=== PATIENT | male | born 1975 | race Caucasian/White ===

== ENCOUNTER 2016-12-01 22:24 | Observation (INO) | payer SELFPAY ==
[2016-12-01] MEDS ORDERED: KETOROLAC 60 MG/2 ML VIAL IVP STA (22:46)
[2016-12-01] MEDS ORDERED: KETOROLAC 30 MG/ML VIAL ONE (22:51)
[2016-12-01] MEDS ORDERED: IOPAMIDOL-300 100 ML VIAL IVP ONE (23:45)
[2016-12-02] MEDS ORDERED: SODIUM CHLORIDE FLUSH 0.9% 10 ML SYRINGE IVP PRN (00:27)
[2016-12-02] MEDS ORDERED: LORazepam 0.5 MG TABLET PO PRN (00:37)
[2016-12-02] MEDS ORDERED: SODIUM CHLORIDE 0.9% 1,000 ML IV ONE (00:39)
[2016-12-02] MEDS ORDERED: MORPHINE 2 MG/ML SYRINGE IVP STA (00:39)
[2016-12-02] MEDS ORDERED: MORPHINE 2 MG/ML SYRINGE ONE ×2 (00:45)
[2016-12-02] MEDS ORDERED: LACTATED RINGERS 1,000 ML IV SCH (01:00)
[2016-12-02] MEDS ORDERED: SODIUM CHLORIDE FLUSH 0.9% 10 ML SYRINGE IVP SCH (06:00)
[2016-12-02] MEDS ORDERED: ENOXAPARIN 40 MG/0.4 ML SYRINGE SUBQ SCH (09:00)
== END 2016-12-02 06:21 | disposition left against medical advice (07) ==
DX: J93.9 Pneumothorax, unspecified (principal); Z72.0 Tobacco use
CPT/HCPCS: 36415; 71010; 71275; 80053; 80320; 83690; 84484; 85025; 93005; 93010; 96374; 96375; 99284; 99285; A9270; G0378; J7120; Q9967

== ENCOUNTER 2017-09-24 16:33 | Outpatient (CLI) | payer OTHER | END 2017-09-24 16:34 | disposition home or self-care (01) | LOC: DI 16:33 | PROVIDERS: ATTEND Physician Assistant | DX: Z53.9 Procedure and treatment not carried out, unspecified reason (principal) ==

== ENCOUNTER 2017-09-26 09:47 | Outpatient (CLI) | payer OTHER ==
--- NOTE | 2017-09-26 17:01 | MRI Report ---
EXAM: MRI LUMBAR SPINE WITHOUT CONTRAST EXAM DATE: 09/26/2017 10:38 AM. CLINICAL HISTORY: Right-sided low back pain with radiculopathy. Bilateral hip and anterior thigh pain . Bilateral leg weakness. COMPARISON: None. TECHNIQUE: Multiplanar, multisequence T1-weighted and fluid-sensitive sequences of the lumbar spine f rom T12 to S1 without contrast. Other: None. FINDINGS: Spinal Cord: The conus terminates at L1-L2. The conus medullaris and cauda equina are unremarkable. Alignment: Minimal dextroconvex scoliosis of the upper lumbar spine and minimal levoconvex scoliosis of the lower lumbar spine. Bone Marrow: Five nwy-hkh-tgiwsht lumbar vertebral bodies are assumed. Mild compression fracture invo lving the L3 superior endplate. Marrow edema within the superior half of the L3 vertebral body. Chron ic appearing mild to moderate compression fracture of the L1 vertebral body. Mild chronic T12 vertebr al body compression fracture. No bone lesions. Disk Levels/Facets: L5-S1: Small posterior central disk protrusion and minimal diffuse disk bulge. No stenoses. L4-L5: Mild facet arthropathy. No stenoses. L3-L4: Unremarkable. L2-L3: Unremarkable. L1-L2: Unremarkable. T12-L1: Unremarkable. T11-T12: Minimal disk bulge. Mild canal stenosis. Musculature: Normal. No edema or fatty atrophy. Other: The partially visualized retroperitoneum is unremarkable. IMPRESSION: 1. Acute or subacute appearing mild compression fracture involving the L3 vertebral body superior end plate. Chronic compression fractures of L1 and T12 vertebral bodies. Clinical correlation with regard s to risk factors for osteoporosis. 2. Small posterior central disk protrusion and minimal diffuse disk bulge at L5-S1. No stenoses. 3. Minimal disk bulge and mild canal stenosis at T11-T12. Comment: The following findings are so common in adults without low back pain that while we report th eir presence, they must be interpreted with caution and in the context of the clinical situation. (Re izzy Spencer et al, Spine 2001) Prevalence of findings in patients without low back pain: Disk degeneration (any evidence): 92% Disk desiccation/T2 signal loss: 83% Disk height loss: 56% Disk bulge: 64% Disk protrusion: 32% Annular tear/high intensity zone: 38% [facility] Referring Provider Line: [phone] SITE ID: [id number]
== END 2017-09-26 09:48 | disposition home or self-care (01) ==
LOC: DI 09:47
PROVIDERS: ATTEND Physician Assistant
DX: S32.039A Unspecified fracture of third lumbar vertebra, initial encounter for closed fracture (principal); M51.27 Other intervertebral disc displacement, lumbosacral region; M47.896 Other spondylosis, lumbar region; M51.84 Other intervertebral disc disorders, thoracic region
CPT/HCPCS: 72148

== ENCOUNTER 2017-10-07 14:14 | Outpatient (CLI) | payer BC, OTHER ==
--- NOTE | 2017-10-09 13:34 | DEXA Report ---
DEXA: 10/07/2017 CLINICAL INDICATION: Low trauma vertebral body compression fracture. TECHNIQUE: Dual energy x-ray absorptiometry (DXA) was performed on a [employer] system. Regions measured are the AP spine, femoral neck, and, if needed, forearm. COMPARISON: None. In accordance with the International Society for Clinical Densitometry (ISCD) guidelines, data from previous exams may be reanalyzed using current recommendations and techniques. This is done to allow a more accurate basis for comparison with the current study. FINDINGS The data for the lumbar spine is as follows: REGION BMD (g/cm/cm) T-SCORE Z-SCORE L1 1.007 -1.3 -0.9 L2 1.004 -2.0 -1.6 L1-L2 TOTAL 1.005 -1.6 -1.3 NOTE: All evaluable vertebrae are used for classification. The data for the left hip is as follows: REGION BMD (g/cm/cm) T-SCORE Z-SCORE Neck 0.869 -1.5 -0.9 TOTAL 0.886 -1.5 -1.1 NOTE: The femoral neck or total proximal femur, whichever is lowest, is used for classification. IMPRESSION 1. THE WHO CLASSIFICATION BASED ON THE INTERNATIONAL REFERENCE STANDARD IS OSTEOPENIA. THE FRACTURE RISK IS INCREASED. 2. L3 AND L4 EXCLUDED, DUE TO RECENT L3 VERTEBRAL BODY FRACTURE HISTORY. RECOMMENDATION: Patients with diagnosis of osteoporosis or osteopenia should have regular bone mineral density assessment. For those eligible for Medicare, routine testing is allowed once every 2 years. Testing frequency can be increased for patients who have rapidly progressing disease or for those who are receiving medical therapy to restore bone mass. COMMENT: World Health Organization (WHO) definitions for osteoporosis and osteopenia: NORMAL BMD: T-score at 1.0 or higher, fracture risk is low. OSTEOPENIA BMD: T-score between 1.0 and -2.5, fracture risk is increased. OSTEOPOROSIS BMD: T-score at 2.5 or lower, fracture risk high. National Osteoporosis Foundation recommends: 1. Obtain adequate dietary calcium (at least 1200 mg per day) and vitamin D (400 -800 international units per day). 2. Participate, as appropriate, in regular weightbearing and muscle- strengthening exercise. 3. Avoid tobacco use and reduce alcohol and caffeine intake. 4. For more detailed information see the website at www.NOF.org. TD: 10/08/2017 18:04 LINA
== END 2017-10-07 14:15 | disposition home or self-care (01) ==
LOC: DI 14:14
PROVIDERS: ATTEND Physician Assistant
DX: M85.89 Other specified disorders of bone density and structure, multiple sites (principal)
CPT/HCPCS: 77080

== ENCOUNTER 2018-08-08 17:12 | Emergency (ER) | payer BC ==
[2018-08-08] MEDS ORDERED: oxyCODONE 5 MG TABLET PO STA (17:30)
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
--- NOTE | 2018-08-08 18:08 | CT Report ---
Reason: head inj Procedure Date: 08/08/2018 Accession Number: [id number] / [id number] Procedure: CT - Head W/O CPT Code: FULL RESULT: EXAM: CT HEAD EXAM DATE: 08/08/2018 05:53 PM. CLINICAL HISTORY: Head injury. Neck sprain. COMPARISON: Head without contrast 08/08/2018 5:33 PM. TECHNIQUE: Multiaxial CT images were obtained from the foramen magnum to the vertex. Reformats: Sagittal and coronal. IV contrast: None. In accordance with CT protocol optimization, one or more of the following dose reduction techniques were utilized for this exam: automated exposure control, adjustment of mA and/or KV based on patient size, or use of iterative reconstructive technique. FINDINGS: Parenchyma: No intraparenchymal hemorrhage. No evidence of mass, midline shift, or CT findings of infarction. Richardson-white differentiation is distinct. Extraaxial Spaces: Normal for age. No subdural or epidural collections identified. Ventricles: Normal in size and position. Sinuses and Orbits: Almost complete opacification of the normal caliber left maxillary sinus. Opacification anterior two-thirds left ethmoid air cells. Lesser degree of mucosal thickening in the left frontal air cells. Rest of the paranasal sinuses, middle ears and mastoid air cells are clear. Bones: No evidence of fracture or calvarial defect. Other: None. No upper facial edema. IMPRESSION: 1. Moderate to marked left ostiomeatal unit complex sinus disease. Note that the full differential of the left maxillary sinus opacification would also include blood products. Correlate clinically. 2. No intracranial abnormality nor bleed. [facility]
--- NOTE | 2018-08-08 18:25 | CT Report ---
Reason: neck sprain Procedure Date: 08/08/2018 Accession Number: [id number] / [id number] Procedure: CT - Cervical Spine W/O CPT Code: FULL RESULT: EXAM: CT CERVICAL SPINE WITHOUT CONTRAST DATE: 08/08/2018 05:53 PM. HISTORY: Head injury. Neck pain. COMPARISONS: None. TECHNIQUE: Thin-section axial images were acquired of the cervical spine without contrast. Post-processing: Coronal and sagittal reformats. Other: None. In accordance with CT protocol optimization, one or more of the following dose reduction techniques were utilized for this exam: automated exposure control, adjustment of mA and/or KV based on patient size, or use of iterative reconstructive technique. FINDINGS: Alignment: No scoliosis or spondylolisthesis. Bones: No fracture or bone lesion. Interspace Levels/Facets: C1-C2: Unremarkable. C2-C3: Unremarkable. C3-C4: Mild narrowing. Old small left-sided disk herniation. Mild left C3-C4 bony neural foraminal compromise. C4-C5: Moderate to marked narrowing. Old moderate left-sided disk herniation. Mild central spinal canal stenosis. Moderate left C4-C5 bony neural foraminal compromise. C5-C6: Mild narrowing. Old small left-sided disk herniation. Mild central spinal canal stenosis. Moderate to marked left C5-C6 bony neural foraminal compromise. C6-C7: Mild narrowing. Old small left-sided disk herniation. Marked left C6-C7 bony neural foraminal compromise. C7-T1: Unremarkable. Musculature: Normal. No fatty atrophy. Other: The paravertebral and prevertebral soft tissues are unremarkable. The lung apices are clear. IMPRESSION: No acute bony abnormality. [facility]
--- NOTE | 2018-08-08 18:28 | XRAY Report ---
Reason: back inj Procedure Date: 08/08/2018 Accession Number: [id number] / [id number] Procedure: XR - Lumbar Spine 2 View CPT Code: FULL RESULT: EXAM: LUMBOSACRAL SPINE RADIOGRAPHY EXAM DATE: 08/08/2018 05:59 PM. CLINICAL HISTORY: Back injury. Pain. COMPARISONS: Lumbar spine MRI without contrast 09/26/2017 10:00 AM. TECHNIQUE: 2 views. FINDINGS: Alignment: 10 degree dextroscoliosis centered at L1-L2. Bones: Five hxd-zst-ckpyhbj lumbar vertebral bodies are present. Stable old mild wedging T12. Stable old moderate wedging L1. Interval maturation mildly wedged L3 vertebral body involving the superior endplate. No acute trabecular or cortical disruption. Disks: Normal. Disk heights are maintained. Facets: No degenerative changes. Sacroiliac Joints: Unremarkable. Soft Tissues: Normal. The visualized bowel gas pattern is normal. IMPRESSION: No acute bony abnormality. [facility]
[2018-08-08] MEDS ORDERED: NAPROXEN 250 MG TABLET PO STA (18:45)
[2018-08-08 19:03] VITALS: BP 123/93
== END 2018-08-08 19:04 | disposition home or self-care (01) ==
LOC: ED 17:12
DX: S09.90XA Unspecified injury of head, initial encounter (principal); S39.92XA Unspecified injury of lower back, initial encounter; J01.01 Acute recurrent maxillary sinusitis; R03.0 Elevated blood-pressure reading, without diagnosis of hypertension; F17.200 Nicotine dependence, unspecified, uncomplicated; Y04.0XXA Assault by unarmed brawl or fight, initial encounter; W22.8XXA Striking against or struck by other objects, initial encounter; Y93.9 Activity, unspecified; Y92.008 Other place in unspecified non-institutional (private) residence as the place of occurrence of the external cause
CPT/HCPCS: 70450; 72100; 72125; 99283; 99284; A9270

== ENCOUNTER 2020-01-23 12:15 | Inpatient (IN) | payer BC, OTHER ==
[2020-01-23] MEDS ORDERED: SODIUM CHLORIDE 0.9% 1,000 ML IV STA ×2 (13:58→14:50)
[2020-01-23] MEDS ORDERED: HYDROmorphone 1 MG/ML CARPUJECT IVP STA ×2 (13:58→15:55)
[2020-01-23] MEDS ORDERED: ONDANSETRON 4 MG/2 ML VIAL IVP STA (13:58)
--- NOTE | 2020-01-23 14:00 | ED Physician Documentation ---
PD HPI ABD PAIN - Stated complaint Stated Complaint: ABD PX - Chief complaint Chief Complaint: Abd Pain - History obtained from History obtained from: Patient - History of Present Illness Timing - onset: Yesterday Timing - duration: Days (2) Timing - details: Gradual onset Pain level max: 10 Pain level now: 10 Quality: Aching, Pain Location: Periumbilical, RLQ, Suprapubic, LLQ Radiation: No: Chest, , Lower back, Left flank, Left shoulder, Right flank, Right shoulder, Upper back Improved by: Laying still Worsened by: Moving Associated symptoms: Nausea, Diarrhea. No: Fever, Vomiting, Hematemesis, Constipation, Melena, Hematochezia, Dysuria, Hematuria, Chest pain, Dizzy, Near syncope / syncope Similar symptoms before: Has not had sx before Recently seen: Not recently seen - Additional information Additional information: 44-year-old male complains of lower abdominal pain since yesterday. States unable to stand up straight now. Decreased appetite. No fevers. History of a splenectomy in the past. No other intra-abdominal surgeries. Has nausea but no vomiting. No blood in the urine. No dysuria. Took Flexeril without relief. Review of Systems Ten Systems: 10 systems reviewed and negative Constitutional: denies: Fever, Chills Cardiac: denies: Chest pain / pressure Respiratory: denies: Cough GI: denies: Vomiting, Diarrhea : denies: Dysuria, Frequency, Hesitancy Skin: denies: Rash Neurologic: denies: Headache PD PAST MEDICAL HISTORY - Past Medical History Cardiovascular: None Respiratory: Other Endocrine/Autoimmune: None GI: None : None HEENT: Other Psych: None Musculoskeletal: None Derm: None - Past Surgical History Past Surgical History: Yes General: Splenectomy, Other Ortho: Other - Present Medications Home Medications: Ambulatory Orders Medication Instructions Recorded Confirmed No Known Home Medications 01/23/20 01/23/20 - Allergies Allergies/Adverse Reactions: Allergies Allergy/AdvReac Type Severity Reaction Status Date / Time No Known Drug Allergies Allergy Verified 01/23/20 12:35 - Social History Does the pt smoke?: Yes Smoking Status: Current every day smoker Does the pt drink ETOH?: Yes Does the pt have substance abuse?: No - Immunizations Immunizations are current?: No - POLST Patient has POLST: No PD ED PE NORMAL - Vitals Vital signs reviewed: Yes - General General: Alert and oriented X 3, Well developed/nourished, Other (Appears in pain) - HEENT HEENT: Moist mucous membranes - Neck Neck: Supple, no meningeal sign - Cardiac Cardiac: RRR, Strong equal pulses - Respiratory Respiratory: No respiratory distress, Clear bilaterally - Abdomen Abdomen: Soft, Other (Diffusely tender palpation across the lower abdomen. Positive guarding and rebound) - Back Back: No CVA TTP, No spinal TTP - Derm Derm: Warm and dry, No rash - Extremities Extremities: No edema, No calf tenderness / cord - Neuro Neuro: Alert and oriented X 3 - Psych Psych: Normal mood, Normal affect Results - Vitals Vitals: Vital Signs - 24 hr 01/23/20 01/23/20 01/23/20 12:31 14:07 15:56 Temperature 36.8 C 37.1 C Heart Rate 124 H 101 H 89 Respiratory 22 16 18 Rate Blood Pressure 112/85 H 135/96 H 123/81 H O2 Saturation 98 100 95 Oxygen O2 Source Room air - Labs Labs: Laboratory Tests 01/23/20 01/23/20 14:00 14:00 WBC 21.3 H RBC 5.52 Hgb 18.9 H Hct 53.7 H MCV 97.3 H MCH 34.2 H MCHC 35.2 RDW 12.3 Plt Count 287 MPV 10.1 Neut # (Auto) Not Reportable Lymph # (Auto) Not Reportable Brooke # (Auto) Not Reportable Eos # (Auto) Not Reportable Baso # (Auto) Not Reportable Absolute Nucleated RBC Not Reportable Total Counted 100 Band Neuts % (Manual) 0 Abnorm Lymph % (Manual) 0 Nucleated RBC % Not Reportable Neutrophils # (Manual) 19.8 H Lymphocytes # (Manual) 1.5 Monocytes # (Manual) 0.0 Eosinophils # (Manual) 0.0 Basophils # (Manual) 0.0 Differential Comment MANUAL DIFFERENTIAL Manual Slide Review Indicated WBC Morphology NORMAL APPEARANCE Platelet Estimate NORMAL (130-450,000) Platelet Morphology NORMAL APPEARANCE RBC Morph Micro Appear NORMAL APPEARANCE Sodium 136 Potassium 3.1 L Chloride 99 L Carbon Dioxide 22 Anion Gap 15.0 H BUN 17 Creatinine 1.1 Estimated GFR (MDRD) 72 L Glucose 120 H Calcium 9.0 Total Bilirubin 2.8 H AST 23 ALT 34 Alkaline Phosphatase 76 Total Protein 8.3 H Albumin 4.2 Globulin 4.1 Albumin/Globulin Ratio 1.0 Lipase 24 - Rads (name of study) CT abdomen pelvis Radiology: Prelim report reviewed, EMP read contemporaneously, See rad report (Sigmoid diverticulitis with perforation) PD MEDICAL DECISION MAKING - ED course Complexity details: reviewed results, re-evaluated patient, considered differential, d/w patient, d/w edi consultant ED course: 44-year-old male with perforated sigmoid diverticulitis. Given IV antibiotics. Given pain medication. Continues to have significant pain. Discussed the case with Dr. Ahumada, surgery on-call who will come and evaluate the patient. Also discussed the case with Dr. Clemente, hospitalist who accepts. This document was made in part using voice recognition software. While efforts are made to proofread this document, sound alike and grammatical errors may occur. Departure - Departure Disposition: 66 [facility] DC/[facility] Clinical Impression: Perforation of intestine due to diverticulitis of gastrointestinal tract Condition: Stable Discharge Date/Time: 01/23/20 18:20
[2020-01-23 14:09] LABS: BASOPHILS % (AUTO) 0.5 %; EOSINOPHILS % (AUTO) 0.3 %; HGB - HEMOGLOBIN 18.9 g/dL (14.0-18.0); LYMPHOCYTES % (AUTO) 11.6 %; MEAN CORPUSCULAR HEMOGLOBIN 34.2 pg (27.0-31.0); MEAN CORPUSCULAR HGB CONC 35.2 g/dL (32.0-36.0); MEAN CORPUSCULAR VOLUME 97.3 fL (80.0-94.0); MEAN PLATELET VOLUME 10.1 fL (7.4-11.4); MONOCYTES % (AUTO) 5.4 %; NEUTROPHILS % (AUTO) 81.6 %; PLT - PLATELET COUNT 287 10^3/uL (130-450); RED BLOOD COUNT 5.52 10^6/uL (4.70-6.10); RED CELL DISTRIBUTION WIDTH 12.3 % (12.0-15.0); WHITE BLOOD COUNT 21.3 x10^3/uL (4.8-10.8)
[2020-01-23] MEDS ORDERED: KETOROLAC 30 MG/ML VIAL IVP STA (14:18)
[2020-01-23] MEDS ORDERED: IOVERSOL 320 100 ML VIAL IVP ONE ×2 (14:35→15:03)
[2020-01-23 14:36] LABS: ALBUMIN 4.2 g/dL (3.2-5.5); BILIRUBIN,TOTAL 2.8 mg/dL (0.2-1.0); CREATININE 1.1 mg/dL (0.6-1.2); TOTAL PROTEIN 8.3 g/dL (6.7-8.2)
[2020-01-23 14:39] LABS: ABNORMAL LYMPHS % (MANUAL) 0 %; BAND NEUTROPHILS % (MANUAL) 0 %
[2020-01-23 15:12] LABS: DIFFERENTIAL COMMENT MANUAL DIFFERENTIAL; LYMPHOCYTES # (MANUAL) 1.5 10^3/uL (1.5-3.5); LYMPHOCYTES % (MANUAL) 7 %; PLATELET ESTIMATE, MANUAL NORMAL (130-450,000) (NORMAL); PLATELET MORPHOLOGY NORMAL APPEARANCE (NORMAL); RBC MORPHOLOGY (MULTIPLE) NORMAL APPEARANCE (NORMAL)
[2020-01-23] MEDS ORDERED: PIPERACILLIN/TAZOBACTAM 4.5 GM in SODIUM CHLORIDE 0.9% MINIBAG 100 ML IV STA (15:29)
[2020-01-23] MEDS ORDERED: metroNIDAZOLE 500 MG/100 ML 500 MG/100 ML BAG IV ONE (15:29)
--- NOTE | 2020-01-23 15:35 | CT Report ---
Reason: RLQ and LLQ abd pain Procedure Date: 01/23/2020 Accession Number: [id number] / [id number] Procedure: CT - Abdomen/Pelvis W CPT Code: Addended Final Report FULL RESULT: EXAM: CT ABDOMEN AND PELVIS EXAM DATE: 01/23/2020 03:02 PM. CLINICAL HISTORY: RLQ and LLQ abd pain. COMPARISONS: None. TECHNIQUE: Routine helical CT imaging was performed through the abdomen and pelvis. IV contrast: 100 cc OPTIRAY 320. Enteric contrast: No. Reconstructions: Coronal and sagittal. In accordance with CT protocol optimization, one or more of the following dose reduction techniques were utilized for this exam: automated exposure control, adjustment of mA and/or KV based on patient size, or use of iterative reconstructive technique. FINDINGS: Lung Bases: Unremarkable. Liver: Normal. No masses. Gallbladder/Bile Ducts: Unremarkable. Spleen: Normal. Pancreas: Normal. Adrenal Glands: Normal. Kidneys: Normal. No masses or hydronephrosis. Peritoneal Cavity/Bowel: Diffuse colonic diverticulosis involving the sigmoid colon with multiple diverticula (image 70 on series 3). There is very colonic fat running. Findings suggestive of acute diverticulitis. No pericolonic fluid collection or abscess. No micro perforation. Normal. No free fluid, free air or adenopathy. No masses or acute inflammatory process. The appendix is well visualized and normal. Pelvic Organs: Normal. The bladder and visualized pelvic organs are within normal limits. Vasculature: No aneurysms or other significant abnormality. Bones: Mild age indeterminate superior endplate compression at L1 and L3 vertebral bodies. Other: None. IMPRESSION: Diffuse colonic diverticulosis involving the sigmoid colon with multiple diverticula and pericolonic fat stranding. Findings suggestive of acute diverticulitis.No pericolonic fluid collection or abscess. No micro perforation. Mild age indeterminate superior end plate compression at L1 and L3 vertebral bodies. [facility] ADDENDUM: 01/23/20 15:52 Suggestion of colonic microperforation.
[2020-01-23] MEDS ORDERED: ACETAMINOPHEN 325 MG TABLET PO PRN (16:36)
[2020-01-23] MEDS ORDERED: ONDANSETRON 4 MG/2 ML VIAL IVP PRN (16:36)
[2020-01-23 17:38] LABS: BILIRUBIN,URINE NEGATIVE (NEGATIVE); GLUCOSE, URINE (UA) NEGATIVE (NEGATIVE); KETONES,URINE (UA) 15 mg/dL (NEGATIVE); LEUKOCYTE ESTERASE, URINE NEGATIVE (NEGATIVE); NITRITE,URINE NEGATIVE (NEGATIVE); OCCULT BLOOD,URINE LARGE (NEGATIVE); PROTEIN,URINE NEGATIVE (NEGATIVE); UROBILINOGEN,URINE 0.2 (NORMAL) E.U./dL (NORMAL)
[2020-01-23 17:41] LABS: CLARITY,URINE HAZY (CLEAR)
[2020-01-23 17:49] LABS: BACTERIA,URINE None Seen /HPF (None Seen); RBC,URINE 0-5 /HPF (0-5); SQUAMOUS EPITHELIAL CELL,UR NONE SEEN (<= Few)
[2020-01-23] MEDS: SODIUM CHLORIDE FLUSH 0.9% 10 ML SYRINGE IVP SCH (18:25)
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
[2020-01-23] MEDS: LACTATED RINGERS 1,000 ML IV SCH (18:41)
[2020-01-23] MEDS: MORPHINE 2 MG/ML CARPUJECT IVP PRN ×2 (18:42→20:43)
[2020-01-23] MEDS: POTASSIUM CHLOR 10 MEQ/100 ML 10 MEQ/100 ML BAG IV SCH ×3 (18:45→22:16)
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
[2020-01-23] MEDS: KETOROLAC 30 MG/ML VIAL IVP PRN (19:18)
[2020-01-23] MEDS: NICOTINE 14 MG PATCH TOP SCH (19:34)
[2020-01-23] MEDS: NICOTINE GUM 4 MG PO SCH (19:47)
[2020-01-23] MEDS: HYDROmorphone 1 MG/ML CARPUJECT IVP PRN (21:40)
[2020-01-24] MEDS: HYDROmorphone 1 MG/ML CARPUJECT IVP PRN ×12 (00:08→22:48)
[2020-01-24] MEDS: SODIUM CHLORIDE FLUSH 0.9% 10 ML SYRINGE IVP SCH ×3 (00:08→16:28)
[2020-01-24] MEDS: NICOTINE GUM 4 MG PO SCH ×11 (00:21→22:58)
[2020-01-24] MEDS: PIPERACILLIN/TAZOBACTAM 3.375 GM in SODIUM CHLORIDE 0.9% MINIBAG 100 ML IV SCH ×4 (00:29→18:37)
[2020-01-24] MEDS: KETOROLAC 30 MG/ML VIAL IVP PRN ×4 (01:11→20:25)
[2020-01-24] MEDS: POTASSIUM CHLOR 10 MEQ/100 ML 10 MEQ/100 ML BAG IV SCH (01:12)
[2020-01-24] MEDS: LACTATED RINGERS 1,000 ML IV SCH ×3 (03:45→20:27)
[2020-01-24 06:18] LABS: BASOPHILS # (AUTO) 0.1 10^3/uL (0.0-0.1); BASOPHILS % (AUTO) 0.4 %; EOSINOPHILS # (AUTO) 0.1 10^3/uL (0.0-0.7); EOSINOPHILS % (AUTO) 0.7 %; HGB - HEMOGLOBIN 14.8 g/dL (14.0-18.0); LYMPHOCYTES # (AUTO) 2.1 10^3/uL (1.5-3.5); LYMPHOCYTES % (AUTO) 9.8 %; MEAN CORPUSCULAR HGB CONC 33.7 g/dL (32.0-36.0); MEAN CORPUSCULAR VOLUME 97.8 fL (80.0-94.0); MEAN PLATELET VOLUME 10.3 fL (7.4-11.4); MONOCYTES # (AUTO) 1.2 10^3/uL (0.0-1.0); MONOCYTES % (AUTO) 5.8 %; NEUTROPHILS # (AUTO) 17.2 10^3/uL (1.5-6.6); NEUTROPHILS % (AUTO) 82.7 %; PLT - PLATELET COUNT 229 10^3/uL (130-450); RED BLOOD COUNT 4.49 10^6/uL (4.70-6.10); RED CELL DISTRIBUTION WIDTH 12.4 % (12.0-15.0); WHITE BLOOD COUNT 20.9 x10^3/uL (4.8-10.8)
[2020-01-24 06:37] LABS: CREATININE 0.9 mg/dL (0.6-1.2); MAGNESIUM 1.9 mg/dL (1.7-2.8); PHOSPHORUS 2.7 mg/dL (2.5-4.6)
[2020-01-24] MEDS: ENOXAPARIN 40 MG/0.4 ML SYRINGE SUBQ SCH (07:55)
--- NOTE | 2020-01-24 08:10 | PHARMACY PROGRESS NOTE ---
- Best Possible Medication History Admit Date and Time: 01/23/20 1636 Processed by: Nursing Medication History completed: Yes Patient Interview: Pt interview ONLY source As the person ultimately responsible for medication therapy, providers are able to order a medication from an existing home medication list in [facility] via the "Reconcile Routine" prior to Confirmation of that medication by wan support specialist. Such practice is discouraged except when the physician, in their clinical judgment, deems that a medical need exists for a medication without regard to previous use.
[2020-01-24] MEDS: NICOTINE 14 MG PATCH TOP SCH (08:28)
--- NOTE | 2020-01-24 09:29 | PROVIDER PROGRESS NOTE ---
Subjective - Prog Note Date Prog Note Date: 01/24/20 - Subjective Subjective: Reports abdominal pain has slightly improved but remains quite significant. It is 10 out of 10 at its worst improved to 5 out of 10 with pain medication. Remains located in the left and right lower quadrants. Reports no nausea or vomiting. He has been able to tolerate some sips and ice chips. Current Medications - Current Medications Current Medications: Active Medications Acetaminophen (Tylenol) 650 mg PO Q4HR PRN PRN Reason: Pain 1 to 4 Enoxaparin Sodium (Lovenox) 40 mg SUBQ DAILY [facility] Last Admin: 01/24/20 07:55 Dose: Not Given Hydromorphone HCl (Dilaudid Inj Carp) 1 mg IVP Q2HR PRN PRN Reason: PAIN Last Admin: 01/24/20 08:28 Dose: 1 mg Lactated Ringer's (Lr) 1,000 mls @ 125 mls/hr IV .Q8H [facility] Last Admin: 01/24/20 03:45 Dose: 125 mls/hr Piperacillin Sod/Tazobactam (Sod 3.375 gm/ Sodium Chloride) 100 mls @ 200 mls/hr IV Q6HR [facility] Last Infusion: 01/24/20 07:01 Dose: Infused Ketorolac Tromethamine (Toradol Inj (30mg)) 30 mg IVP Q6HR PRN PRN Reason: PAIN Stop: 01/28/20 18:34 Last Admin: 01/24/20 07:35 Dose: 30 mg Nicotine (Nicoderm) 1 patch TOP DAILY [facility] Last Admin: 01/24/20 08:28 Dose: Not Given Nicotine Gum 4mg 1 each PO Q2H [facility] Last Admin: 01/24/20 09:07 Dose: 1 each Ondansetron HCl (Zofran Inj) 4 mg IVP Q6HR PRN PRN Reason: Nausea / Vomiting Sodium Chloride (Normal Saline Flush 0.9%) 10 ml IVP PRN PRN PRN Reason: NEEDED PER PROVIDER ORDERS Sodium Chloride (Normal Saline Flush 0.9%) 10 ml IVP 0100,0900,1700 [facility] Last Admin: 01/24/20 07:36 Dose: 10 ml No Known Home Medications 01/23/20 Objective - Vital Signs/Intake & Output Reviewed Vital Signs: Yes Vital Signs: Vital Signs x48h Temp Pulse Resp BP Pulse Ox 05/17/20 08:05 36.9 C 86 18 121/75 94 01/24/20 04:43 37 C 73 20 115/74 93 Intake & Output: Intake & Output 01/21/20 01/22/20 01/23/20 01/24/20 23:59 23:59 23:59 23:59 Intake Total 3146.667 1400 Balance 3146.667 1400 - Objective General Appearance: positive: No acute distress, Moderate distress Eyes Bilateral: positive: Normal inspection ENT: positive: ENT inspection nml Neck: positive: Nml inspection Respiratory: positive: No respiratory distress. negative: Wheezes, Rales, Rhonchi Cardiovascular: positive: Regular rate & rhythm, No murmur. negative: Tachycardia, Bradycardia, Systolic murmur Abdomen: positive: Nml bowel sounds, No distention, Tenderness (Prominent in the left and right lower quadrants.), Guarding. negative: Non-tender, Rebound Skin: positive: Warm, Dry Extremities: positive: Full ROM, No pedal edema Neurologic/Psychiatric: positive: Oriented x3, Motor nml. negative: Disoriented to person, Disoriented to place, Disoriented to time - Lab Results Fish Bones: 01/24/20 06:08 01/24/20 06:08 Other Labs: Lab Results x24hrs 01/24/20 01/24/20 01/24/20 Range/Units 06:10 06:08 06:08 WBC 20.9 H (4.8-10.8) x10^3/uL RBC 4.49 L (4.70-6.10) 10^6/uL Hgb 14.8 (14.0-18.0) g/dL Hct 43.9 (42.0-52.0) % MCV 97.8 H (80.0-94.0) fL MCH 33.0 H (27.0-31.0) pg MCHC 33.7 (32.0-36.0) g/dL RDW 12.4 (12.0-15.0) % Plt Count 229 (130-450) 10^3/uL MPV 10.3 (7.4-11.4) fL Neut # (Auto) 17.2 H Lymph # (Auto) 2.1 [place] # (Auto) 1.2 H Eos # (Auto) 0.1 Baso # (Auto) 0.1 Absolute Nucleated RBC 0.00 Total Counted Band Neuts % (Manual) (0 - 10) % Abnorm Lymph % (Manual) % Nucleated RBC % 0.0 Neutrophils # (Manual) (1.5-6.6) 10^3/uL Lymphocytes # (Manual) (1.5-3.5) 10^3/uL Monocytes # (Manual) (0.0-1.0) 10^3/uL Eosinophils # (Manual) (0-0.7) 10^3/uL Basophils # (Manual) (0-0.1) 10^3/uL Differential Comment Manual Slide Review WBC Morphology (NORMAL) Platelet Estimate (NORMAL) Platelet Morphology (NORMAL) RBC Morph Micro Appear (NORMAL) Sodium 134 L (135-145) mmol/L Potassium 3.6 (3.5-5.0) mmol/L Chloride 104 (101-111) mmol/L Carbon Dioxide 24 (21-32) mmol/L Anion Gap 6.0 (6-13) BUN 16 (6-20) mg/dL Creatinine 0.9 (0.6-1.2) mg/dL Estimated GFR (MDRD) 91 (>89) Glucose 89 (70-100) mg/dL POC Whole Bld Glucose 86 (70 - 100) mg/dL Calcium 8.0 L (8.5-10.3) mg/dL Phosphorus 2.7 (2.5-4.6) mg/dL Magnesium 1.9 (1.7-2.8) mg/dL Total Bilirubin (0.2-1.0) mg/dL AST (10-42) IU/L ALT (10-60) IU/L Alkaline Phosphatase (42-121) IU/L Total Protein (6.7-8.2) g/dL Albumin (3.2-5.5) g/dL Globulin (2.1-4.2) g/dL Albumin/Globulin Ratio (1.0-2.2) Lipase (22-51) U/L Urine Color Urine Clarity (CLEAR) Urine pH (5.0-7.5) PH Ur Specific [place] (1.002-1.030) Urine Protein (NEGATIVE) mg/dL Urine Glucose (UA) (NEGATIVE) mg/dL Urine Ketones (NEGATIVE) mg/dL Urine Occult Blood (NEGATIVE) Urine Nitrite (NEGATIVE) Urine Bilirubin (NEGATIVE) Urine Urobilinogen (NORMAL) E.U./dL Ur Leukocyte Esterase (NEGATIVE) Urine RBC (0-5) /HPF Urine WBC (0-3) /HPF Ur Squamous Epith Cells (<= Few) Urine Bacteria (None Seen) /HPF Ur Microscopic Review Urine Culture Comments 01/23/20 01/23/20 01/23/20 Range/Units 17:02 14:00 14:00 WBC 21.3 H (4.8-10.8) x10^3/uL RBC 5.52 (4.70-6.10) 10^6/uL Hgb 18.9 H (14.0-18.0) g/dL Hct 53.7 H (42.0-52.0) % MCV 97.3 H (80.0-94.0) fL MCH 34.2 H (27.0-31.0) pg MCHC 35.2 (32.0-36.0) g/dL RDW 12.3 (12.0-15.0) % Plt Count 287 (130-450) 10^3/uL MPV 10.1 (7.4-11.4) fL Neut # (Auto) Not Reportable Lymph # (Auto) Not Reportable [place] # (Auto) Not Reportable Eos # (Auto) Not Reportable Baso # (Auto) Not Reportable Absolute Nucleated RBC Not Reportable Total Counted 100 Band Neuts % (Manual) 0 (0 - 10) % Abnorm Lymph % (Manual) 0 % Nucleated RBC % Not Reportable Neutrophils # (Manual) 19.8 H (1.5-6.6) 10^3/uL Lymphocytes # (Manual) 1.5 (1.5-3.5) 10^3/uL Monocytes # (Manual) 0.0 (0.0-1.0) 10^3/uL Eosinophils # (Manual) 0.0 (0-0.7) 10^3/uL Basophils # (Manual) 0.0 (0-0.1) 10^3/uL Differential Comment MANUAL DIFFERENTIAL Manual Slide Review Indicated WBC Morphology NORMAL APPEARANCE (NORMAL) Platelet Estimate NORMAL (130-450,000) (NORMAL) Platelet Morphology NORMAL APPEARANCE (NORMAL) RBC Morph Micro Appear NORMAL APPEARANCE (NORMAL) Sodium 136 (135-145) mmol/L Potassium 3.1 L (3.5-5.0) mmol/L Chloride 99 L (101-111) mmol/L Carbon Dioxide 22 (21-32) mmol/L Anion Gap 15.0 H (6-13) BUN 17 (6-20) mg/dL Creatinine 1.1 (0.6-1.2) mg/dL Estimated GFR (MDRD) 72 L (>89) Glucose 120 H (70-100) mg/dL POC Whole Bld Glucose (70 - 100) mg/dL Calcium 9.0 (8.5-10.3) mg/dL Phosphorus (2.5-4.6) mg/dL Magnesium (1.7-2.8) mg/dL Total Bilirubin 2.8 H (0.2-1.0) mg/dL AST 23 (10-42) IU/L ALT 34 (10-60) IU/L Alkaline Phosphatase 76 (42-121) IU/L Total Protein 8.3 H (6.7-8.2) g/dL Albumin 4.2 (3.2-5.5) g/dL Globulin 4.1 (2.1-4.2) g/dL Albumin/Globulin Ratio 1.0 (1.0-2.2) Lipase 24 (22-51) U/L Urine Color YELLOW Urine Clarity HAZY (CLEAR) Urine pH 5.0 (5.0-7.5) PH Ur Specific [place] <=1.005 (1.002-1.030) Urine Protein NEGATIVE (NEGATIVE) mg/dL Urine Glucose (UA) NEGATIVE (NEGATIVE) mg/dL Urine Ketones 15 H (NEGATIVE) mg/dL Urine Occult Blood LARGE H (NEGATIVE) Urine Nitrite NEGATIVE (NEGATIVE) Urine Bilirubin NEGATIVE (NEGATIVE) Urine Urobilinogen 0.2 (NORMAL) (NORMAL) E.U./dL Ur Leukocyte Esterase NEGATIVE (NEGATIVE) Urine RBC 0-5 (0-5) /HPF Urine WBC 0-3 (0-3) /HPF Ur Squamous Epith Cells NONE SEEN (<= Few) Urine Bacteria None Seen (None Seen) /HPF Ur Microscopic Review INDICATED Urine Culture Comments NOT INDICATED ABX Reporting Has patient been on IV antibiotics over the past 48 hours?: Yes Sepsis Event Note (H) - Evaluation Current Stage of Sepsis: Sepsis Possible source of Sepsis: positive: GI tract/intra-abdominal - Sepsis Criteria Sepsis Criteria: Recorded Heart Rate greater than 90 bpm, Recorded Respiratory Rate greater than 20, WBC count greater than 12,000 or less than 4000, Hepatic: Bilirubin greater than 2mg/dl Assessment/Plan - Problem List (1) Sepsis Impression: This is improving. His white count [place] elevated at 20,000 but he is no longer tachycardic and he remains afebrile. We will continue IV Zosyn to treat the underlying diverticulitis. (2) Acute diverticulitis Impression: This was evident on CT with evidence of microperforations. Continues to have significant lower quadrant pain and his white count meds elevated at 20,000. We will continue with IV Zosyn. Dilaudid and Toradol IV as needed for pain control. He would like to try some clear liquids but I am concerned given his significant abdominal pain. We will reassess him around noon and if his pain continues to slowly improve, we will start him on a clear liquid diet as tolerated. General surgery has been consulted and appreciate their recommendations. (3) Tobacco use Impression: He prefers nicotine gum and this has been ordered.
--- NOTE | 2020-01-24 12:50 | PROVIDER PROGRESS NOTE ---
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 able to tolerated small portions clears. passing gas. abdomen feels less tight) Objective - Vital Signs/Intake & Output Vital Signs: Vital Signs x48h Temp Pulse Resp BP Pulse Ox 01/24/20 11:13 36.7 C 86 18 126/81 H 97 01/24/20 08:05 36.9 C 86 18 121/75 94 Intake & Output: Intake & Output 01/21/20 01/22/20 01/23/20 01/24/20 23:59 23:59 23:59 23:59 Intake Total 3146.667 2959.167 Balance 3146.667 2959.167 - Objective General Appearance: positive: No acute distress, Alert Eyes Bilateral: positive: Normal inspection Respiratory: positive: No respiratory distress Abdomen: positive: No distention (localized tenderness non distended benign), Tenderness - Lab Results Fish Bones: 01/24/20 06:08 01/24/20 06:08 Other Labs: Lab Results x24hrs 01/24/20 01/24/20 01/24/20 Range/Units 10:56 06:10 06:08 WBC (4.8-10.8) x10^3/uL RBC (4.70-6.10) 10^6/uL Hgb (14.0-18.0) g/dL Hct (42.0-52.0) % MCV (80.0-94.0) fL MCH (27.0-31.0) pg MCHC (32.0-36.0) g/dL RDW (12.0-15.0) % Plt Count (130-450) 10^3/uL MPV (7.4-11.4) fL Neut # (Auto) Lymph # (Auto) [place] # (Auto) Eos # (Auto) Baso # (Auto) Absolute Nucleated RBC Total Counted Band Neuts % (Manual) (0 - 10) % Abnorm Lymph % (Manual) % Nucleated RBC % Neutrophils # (Manual) (1.5-6.6) 10^3/uL Lymphocytes # (Manual) (1.5-3.5) 10^3/uL Monocytes # (Manual) (0.0-1.0) 10^3/uL Eosinophils # (Manual) (0-0.7) 10^3/uL Basophils # (Manual) (0-0.1) 10^3/uL Differential Comment Manual Slide Review WBC Morphology (NORMAL) Platelet Estimate (NORMAL) Platelet Morphology (NORMAL) RBC Morph Micro Appear (NORMAL) Sodium 134 L (135-145) mmol/L Potassium 3.6 (3.5-5.0) mmol/L Chloride 104 (101-111) mmol/L Carbon Dioxide 24 (21-32) mmol/L Anion Gap 6.0 (6-13) BUN 16 (6-20) mg/dL Creatinine 0.9 (0.6-1.2) mg/dL Estimated GFR (MDRD) 91 (>89) Glucose 89 (70-100) mg/dL POC Whole Bld Glucose 75 86 (70 - 100) mg/dL Calcium 8.0 L (8.5-10.3) mg/dL Phosphorus 2.7 (2.5-4.6) mg/dL Magnesium 1.9 (1.7-2.8) mg/dL Total Bilirubin (0.2-1.0) mg/dL AST (10-42) IU/L ALT (10-60) IU/L Alkaline Phosphatase (42-121) IU/L Total Protein (6.7-8.2) g/dL Albumin (3.2-5.5) g/dL Globulin (2.1-4.2) g/dL Albumin/Globulin Ratio (1.0-2.2) Lipase (22-51) U/L Urine Color Urine Clarity (CLEAR) Urine pH (5.0-7.5) PH Ur Specific [place] (1.002-1.030) Urine Protein (NEGATIVE) mg/dL Urine Glucose (UA) (NEGATIVE) mg/dL Urine Ketones (NEGATIVE) mg/dL Urine Occult Blood (NEGATIVE) Urine Nitrite (NEGATIVE) Urine Bilirubin (NEGATIVE) Urine Urobilinogen (NORMAL) E.U./dL Ur Leukocyte Esterase (NEGATIVE) Urine RBC (0-5) /HPF Urine WBC (0-3) /HPF Ur Squamous Epith Cells (<= Few) Urine Bacteria (None Seen) /HPF Ur Microscopic Review Urine Culture Comments 01/24/20 01/23/20 01/23/20 Range/Units 06:08 17:02 14:00 WBC 20.9 H (4.8-10.8) x10^3/uL RBC 4.49 L (4.70-6.10) 10^6/uL Hgb 14.8 (14.0-18.0) g/dL Hct 43.9 (42.0-52.0) % MCV 97.8 H (80.0-94.0) fL MCH 33.0 H (27.0-31.0) pg MCHC 33.7 (32.0-36.0) g/dL RDW 12.4 (12.0-15.0) % Plt Count 229 (130-450) 10^3/uL MPV 10.3 (7.4-11.4) fL Neut # (Auto) 17.2 H Lymph # (Auto) 2.1 [place] # (Auto) 1.2 H Eos # (Auto) 0.1 Baso # (Auto) 0.1 Absolute Nucleated RBC 0.00 Total Counted Band Neuts % (Manual) (0 - 10) % Abnorm Lymph % (Manual) % Nucleated RBC % 0.0 Neutrophils # (Manual) (1.5-6.6) 10^3/uL Lymphocytes # (Manual) (1.5-3.5) 10^3/uL Monocytes # (Manual) (0.0-1.0) 10^3/uL Eosinophils # (Manual) (0-0.7) 10^3/uL Basophils # (Manual) (0-0.1) 10^3/uL Differential Comment Manual Slide Review WBC Morphology (NORMAL) Platelet Estimate (NORMAL) Platelet Morphology (NORMAL) RBC Morph Micro Appear (NORMAL) Sodium 136 (135-145) mmol/L Potassium 3.1 L (3.5-5.0) mmol/L Chloride 99 L (101-111) mmol/L Carbon Dioxide 22 (21-32) mmol/L Anion Gap 15.0 H (6-13) BUN 17 (6-20) mg/dL Creatinine 1.1 (0.6-1.2) mg/dL Estimated GFR (MDRD) 72 L (>89) Glucose 120 H (70-100) mg/dL POC Whole Bld Glucose (70 - 100) mg/dL Calcium 9.0 (8.5-10.3) mg/dL Phosphorus (2.5-4.6) mg/dL Magnesium (1.7-2.8) mg/dL Total Bilirubin 2.8 H (0.2-1.0) mg/dL AST 23 (10-42) IU/L ALT 34 (10-60) IU/L Alkaline Phosphatase 76 (42-121) IU/L Total Protein 8.3 H (6.7-8.2) g/dL Albumin 4.2 (3.2-5.5) g/dL Globulin 4.1 (2.1-4.2) g/dL Albumin/Globulin Ratio 1.0 (1.0-2.2) Lipase 24 (22-51) U/L Urine Color YELLOW Urine Clarity HAZY (CLEAR) Urine pH 5.0 (5.0-7.5) PH Ur Specific [place] <=1.005 (1.002-1.030) Urine Protein NEGATIVE (NEGATIVE) mg/dL Urine Glucose (UA) NEGATIVE (NEGATIVE) mg/dL Urine Ketones 15 H (NEGATIVE) mg/dL Urine Occult Blood LARGE H (NEGATIVE) Urine Nitrite NEGATIVE (NEGATIVE) Urine Bilirubin NEGATIVE (NEGATIVE) Urine Urobilinogen 0.2 (NORMAL) (NORMAL) E.U./dL Ur Leukocyte Esterase NEGATIVE (NEGATIVE) Urine RBC 0-5 (0-5) /HPF Urine WBC 0-3 (0-3) /HPF Ur Squamous Epith Cells NONE SEEN (<= Few) Urine Bacteria None Seen (None Seen) /HPF Ur Microscopic Review INDICATED Urine Culture Comments NOT INDICATED 01/23/20 Range/Units 14:00 WBC 21.3 H (4.8-10.8) x10^3/uL RBC 5.52 (4.70-6.10) 10^6/uL Hgb 18.9 H (14.0-18.0) g/dL Hct 53.7 H (42.0-52.0) % MCV 97.3 H (80.0-94.0) fL MCH 34.2 H (27.0-31.0) pg MCHC 35.2 (32.0-36.0) g/dL RDW 12.3 (12.0-15.0) % Plt Count 287 (130-450) 10^3/uL MPV 10.1 (7.4-11.4) fL Neut # (Auto) Not Reportable Lymph # (Auto) Not Reportable [place] # (Auto) Not Reportable Eos # (Auto) Not Reportable Baso # (Auto) Not Reportable Absolute Nucleated RBC Not Reportable Total Counted 100 Band Neuts % (Manual) 0 (0 - 10) % Abnorm Lymph % (Manual) 0 % Nucleated RBC % Not Reportable Neutrophils # (Manual) 19.8 H (1.5-6.6) 10^3/uL Lymphocytes # (Manual) 1.5 (1.5-3.5) 10^3/uL Monocytes # (Manual) 0.0 (0.0-1.0) 10^3/uL Eosinophils # (Manual) 0.0 (0-0.7) 10^3/uL Basophils # (Manual) 0.0 (0-0.1) 10^3/uL Differential Comment MANUAL DIFFERENTIAL Manual Slide Review Indicated WBC Morphology NORMAL APPEARANCE (NORMAL) Platelet Estimate NORMAL (130-450,000) (NORMAL) Platelet Morphology NORMAL APPEARANCE (NORMAL) RBC Morph Micro Appear NORMAL APPEARANCE (NORMAL) Sodium (135-145) mmol/L Potassium (3.5-5.0) mmol/L Chloride (101-111) mmol/L Carbon Dioxide (21-32) mmol/L Anion Gap (6-13) BUN (6-20) mg/dL Creatinine (0.6-1.2) mg/dL Estimated GFR (MDRD) (>89) Glucose (70-100) mg/dL POC Whole Bld Glucose (70 - 100) mg/dL Calcium (8.5-10.3) mg/dL Phosphorus (2.5-4.6) mg/dL Magnesium (1.7-2.8) mg/dL Total Bilirubin (0.2-1.0) mg/dL AST (10-42) IU/L ALT (10-60) IU/L Alkaline Phosphatase (42-121) IU/L Total Protein (6.7-8.2) g/dL Albumin (3.2-5.5) g/dL Globulin (2.1-4.2) g/dL Albumin/Globulin Ratio (1.0-2.2) Lipase (22-51) U/L Urine Color Urine Clarity (CLEAR) Urine pH (5.0-7.5) PH Ur Specific [place] (1.002-1.030) Urine Protein (NEGATIVE) mg/dL Urine Glucose (UA) (NEGATIVE) mg/dL Urine Ketones (NEGATIVE) mg/dL Urine Occult Blood (NEGATIVE) Urine Nitrite (NEGATIVE) Urine Bilirubin (NEGATIVE) Urine Urobilinogen (NORMAL) E.U./dL Ur Leukocyte Esterase (NEGATIVE) Urine RBC (0-5) /HPF Urine WBC (0-3) /HPF Ur Squamous Epith Cells (<= Few) Urine Bacteria (None Seen) /HPF Ur Microscopic Review Urine Culture Comments Sepsis Event Note (H) - Evaluation Current Stage of Sepsis: Sepsis Possible source of Sepsis: positive: GI tract/intra-abdominal - Sepsis Criteria Sepsis Criteria: Recorded Heart Rate greater than 90 bpm, Recorded Respiratory Rate greater than 20, WBC count greater than 12,000 or less than 4000, Hepatic: Bilirubin greater than 2mg/dl Assessment/Plan - Problem List (1) Perforation of intestine due to diverticulitis of gastrointestinal tract Impression: Agree with care and plan. Anticipated gradual improvement over days Hopefully home in a few days and gradually increasing fiber intake over a couple weeks. 25 to 40 gms fiber per day We discussed the first bout is usually the worst and hopefully he will never have another bout Surgery is indicated for repeated bouts. He should follow up with surgery in a couple weeks I will continue to follow until discharge If he is not improving ct scan to rule out developing abscess would be recommended
[2020-01-24] MEDS: SODIUM CHLORIDE FLUSH 0.9% 10 ML SYRINGE IVP PRN (13:29)
[2020-01-24] MEDS: diphenhydrAMINE 25 MG CAPSULE PO PRN (22:47)
[2020-01-25] MEDS: PIPERACILLIN/TAZOBACTAM 3.375 GM in SODIUM CHLORIDE 0.9% MINIBAG 100 ML IV SCH ×4 (00:32→17:39)
[2020-01-25] MEDS: SODIUM CHLORIDE FLUSH 0.9% 10 ML SYRINGE IVP PRN ×3 (00:36→14:50)
[2020-01-25] MEDS: HYDROmorphone 1 MG/ML CARPUJECT IVP PRN ×7 (01:10→14:50)
[2020-01-25] MEDS: NICOTINE GUM 4 MG PO SCH ×11 (02:29→22:53)
[2020-01-25] MEDS: KETOROLAC 30 MG/ML VIAL IVP PRN ×3 (02:30→17:19)
[2020-01-25] MEDS: SODIUM CHLORIDE FLUSH 0.9% 10 ML SYRINGE IVP SCH ×3 (02:33→17:28)
[2020-01-25] MEDS: diphenhydrAMINE 25 MG CAPSULE PO PRN ×5 (03:02→19:15)
[2020-01-25 05:28] LABS: BASOPHILS # (AUTO) 0.1 10^3/uL (0.0-0.1); BASOPHILS % (AUTO) 0.5 %; EOSINOPHILS # (AUTO) 0.3 10^3/uL (0.0-0.7); EOSINOPHILS % (AUTO) 1.8 %; HGB - HEMOGLOBIN 14.5 g/dL (14.0-18.0); LYMPHOCYTES # (AUTO) 1.3 10^3/uL (1.5-3.5); LYMPHOCYTES % (AUTO) 9.1 %; MEAN CORPUSCULAR HEMOGLOBIN 34.9 pg (27.0-31.0); MEAN CORPUSCULAR VOLUME 99.8 fL (80.0-94.0); MEAN PLATELET VOLUME 10.7 fL (7.4-11.4); MONOCYTES % (AUTO) 6.7 %; NEUTROPHILS # (AUTO) 11.6 10^3/uL (1.5-6.6); NEUTROPHILS % (AUTO) 81.5 %; PLT - PLATELET COUNT 210 10^3/uL (130-450); RED BLOOD COUNT 4.15 10^6/uL (4.70-6.10); RED CELL DISTRIBUTION WIDTH 12.4 % (12.0-15.0); WHITE BLOOD COUNT 14.2 x10^3/uL (4.8-10.8)
[2020-01-25 05:39] LABS: CALCIUM 8.3 mg/dL (8.5-10.3); CREATININE 0.8 mg/dL (0.6-1.2); MAGNESIUM 1.9 mg/dL (1.7-2.8); PHOSPHORUS 3.2 mg/dL (2.5-4.6)
[2020-01-25] MEDS: LACTATED RINGERS 1,000 ML IV SCH ×3 (06:19→18:08)
[2020-01-25] MEDS ORDERED: POTASSIUM CHLORIDE 20 MEQ TABLET PO ONE (07:30)
--- NOTE | 2020-01-25 09:09 | PROVIDER PROGRESS NOTE ---
Subjective - Prog Note Date Prog Note Date: 01/25/20 - Subjective Subjective: Reports his abdominal pain has slightly improved since admission but is still quite painful especially in the lower quadrants. This morning had one severe episode. He has been tolerating a clear liquid diet. Reports some nausea but no vomiting. Current Medications - Current Medications Current Medications: Active Medications Acetaminophen (Tylenol) 650 mg PO Q4HR PRN PRN Reason: Pain 1 to 4 Diphenhydramine HCl (Benadryl) 25 mg PO Q4HR PRN PRN Reason: ITCHING Last Admin: 01/25/20 06:55 Dose: 25 mg Enoxaparin Sodium (Lovenox) 40 mg SUBQ DAILY [facility] Last Admin: 01/24/20 07:55 Dose: Not Given Hydromorphone HCl (Dilaudid Inj Carp) 1 mg IVP Q2HR PRN PRN Reason: PAIN Last Admin: 01/25/20 07:18 Dose: 1 mg Lactated Ringer's (Lr) 1,000 mls @ 125 mls/hr IV .Q8H [facility] Last Infusion: 01/25/20 08:00 Dose: 125 mls/hr Piperacillin Sod/Tazobactam (Sod 3.375 gm/ Sodium Chloride) 100 mls @ 200 mls/h r IV Q6HR [facility] Last Infusion: 01/25/20 06:49 Dose: Infused Ketorolac Tromethamine (Toradol Inj (30mg)) 30 mg IVP Q6HR PRN PRN Reason: PAIN Stop: 01/28/20 18:34 Last Admin: 01/25/20 02:30 Dose: 30 mg Nicotine (Nicoderm) 1 patch TOP DAILY [facility] Last Admin: 01/24/20 08:28 Dose: Not Given Nicotine Gum 4mg 1 each PO Q2H [facility] Last Admin: 01/25/20 07:24 Dose: 1 each Ondansetron HCl (Zofran Inj) 4 mg IVP Q6HR PRN PRN Reason: Nausea / Vomiting Last Admin: 01/24/20 18:40 Dose: 4 mg Sodium Chloride (Normal Saline Flush 0.9%) 10 ml IVP PRN PRN PRN Reason: NEEDED PER PROVIDER ORDERS Last Admin: 01/25/20 00:36 Dose: 10 ml Sodium Chloride (Normal Saline Flush 0.9%) 10 ml IVP 0100,0900,1700 [facility] Last Admin: 01/25/20 02:33 Dose: Not Given No Known Home Medications 01/23/20 Objective - Vital Signs/Intake & Output Reviewed Vital Signs: Yes Vital Signs: Vital Signs x48h Temp Pulse Resp BP Pulse Ox 01/25/20 08:36 37.3 C 76 18 121/64 95 01/25/20 05:39 37.2 C 70 20 116/69 95 Intake & Output: Intake & Output 01/22/20 01/23/20 01/24/20 01/25/20 23:59 23:59 23:59 23:59 Intake Total 3146.667 4209.167 1284.583 Balance 3146.667 4209.167 1284.583 - Objective General Appearance: positive: Alert, Moderate distress Eyes Bilateral: positive: Normal inspection ENT: positive: ENT inspection nml Neck: positive: Nml inspection Respiratory: positive: No respiratory distress. negative: Wheezes, Rales Cardiovascular: positive: No murmur, Tachycardia. negative: Bradycardia Abdomen: positive: No distention, Tenderness (Quite tender in the left and right lower quadrants.), Guarding. negative: Non-tender, Rebound Skin: positive: Warm, Dry Extremities: positive: Full ROM Neurologic/Psychiatric: positive: Oriented x3. negative: Disoriented to person, Disoriented to place, Disoriented to time - Lab Results Fish Bones: 01/25/20 05:11 01/25/20 05:11 Other Labs: Lab Results x24hrs 01/25/20 01/25/20 01/24/20 Range/Units 05:11 05:11 10:56 WBC 14.2 H (4.8-10.8) x10^3/uL RBC 4.15 L (4.70-6.10) 10^6/uL Hgb 14.5 (14.0-18.0) g/dL Hct 41.4 L (42.0-52.0) % MCV 99.8 H (80.0-94.0) fL MCH 34.9 H (27.0-31.0) pg MCHC 35.0 (32.0-36.0) g/dL RDW 12.4 (12.0-15.0) % Plt Count 210 (130-450) 10^3/uL MPV 10.7 (7.4-11.4) fL Neut # (Auto) 11.6 H (1.5-6.6) 10^3/uL Lymph # (Auto) 1.3 L (1.5-3.5) 10^3/uL [place] # (Auto) 1.0 (0.0-1.0) 10^3/uL Eos # (Auto) 0.3 (0.0-0.7) 10^3/uL Baso # (Auto) 0.1 (0.0-0.1) 10^3/uL Absolute Nucleated RBC 0.00 x10^3/uL Nucleated RBC % 0.0 /100WBC Sodium 137 (135-145) mmol/L Potassium 3.3 L (3.5-5.0) mmol/L Chloride 103 (101-111) mmol/L Carbon Dioxide 27 (21-32) mmol/L Anion Gap 7.0 (6-13) BUN 8 (6-20) mg/dL Creatinine 0.8 (0.6-1.2) mg/dL Estimated GFR (MDRD) 104 (>89) Glucose 92 (70-100) mg/dL POC Whole Bld Glucose 75 (70 - 100) mg/dL Calcium 8.3 L (8.5-10.3) mg/dL Phosphorus 3.2 (2.5-4.6) mg/dL Magnesium 1.9 (1.7-2.8) mg/dL ABX Reporting Has patient been on IV antibiotics over the past 48 hours?: Yes Sepsis Event Note (H) - Evaluation Current Stage of Sepsis: Resolved Possible source of Sepsis: positive: GI tract/intra-abdominal - Sepsis Criteria Sepsis Criteria: Recorded Heart Rate greater than 90 bpm, Recorded Respiratory Rate greater than 20, WBC count greater than 12,000 or less than 4000, Hepatic: Bilirubin greater than 2mg/dl Assessment/Plan - Problem List (1) Acute diverticulitis Impression: His white count has improved but he continues to have significant abdominal pain. He is tolerating a clear liquid diet. We will reassess him in the afternoon and if continues to have significant abdominal pain, we will obtain a CT of the abdomen pelvis with contrast to rule out an underlying abscess. We will continue with Zosyn IV. Continue with Dilaudid IV and Toradol as needed. Continue the clear liquid diet as tolerated. If his abdominal pain improves, we will advance it as tolerated. General surgery has been consulted and appreciate their recommendations. (2) Hypokalemia Impression: Replace orally as he is tolerating a clear liquid diet. (3) Tobacco use Impression: Continue with nicotine gum.
[2020-01-25] MEDS: NICOTINE 14 MG PATCH TOP SCH (09:29)
--- NOTE | 2020-01-25 09:32 | PROVIDER PROGRESS NOTE ---
Subjective - Prog Note Date Prog Note Date: 01/25/20 - Subjective Subjective: sound asleep, resting comfortably on his left side Objective - Vital Signs/Intake & Output Vital Signs: Vital Signs x48h Temp Pulse Resp BP Pulse Ox 01/25/20 08:36 37.3 C 76 18 121/64 95 01/25/20 05:39 37.2 C 70 20 116/69 95 Intake & Output: Intake & Output 01/22/20 01/23/20 01/24/20 01/25/20 23:59 23:59 23:59 23:59 Intake Total 3146.667 4209.167 1524.583 Balance 3146.667 4209.167 1524.583 - Objective General Appearance: positive: No acute distress Abdomen: positive: No distention - Lab Results Fish Bones: 01/25/20 05:11 01/25/20 05:11 Other Labs: Lab Results x24hrs 01/25/20 01/25/20 01/24/20 Range/Units 05:11 05:11 10:56 WBC 14.2 H (4.8-10.8) x10^3/uL RBC 4.15 L (4.70-6.10) 10^6/uL Hgb 14.5 (14.0-18.0) g/dL Hct 41.4 L (42.0-52.0) % MCV 99.8 H (80.0-94.0) fL MCH 34.9 H (27.0-31.0) pg MCHC 35.0 (32.0-36.0) g/dL RDW 12.4 (12.0-15.0) % Plt Count 210 (130-450) 10^3/uL MPV 10.7 (7.4-11.4) fL Neut # (Auto) 11.6 H (1.5-6.6) 10^3/uL Lymph # (Auto) 1.3 L (1.5-3.5) 10^3/uL [place] # (Auto) 1.0 (0.0-1.0) 10^3/uL Eos # (Auto) 0.3 (0.0-0.7) 10^3/uL Baso # (Auto) 0.1 (0.0-0.1) 10^3/uL Absolute Nucleated RBC 0.00 x10^3/uL Nucleated RBC % 0.0 /100WBC Sodium 137 (135-145) mmol/L Potassium 3.3 L (3.5-5.0) mmol/L Chloride 103 (101-111) mmol/L Carbon Dioxide 27 (21-32) mmol/L Anion Gap 7.0 (6-13) BUN 8 (6-20) mg/dL Creatinine 0.8 (0.6-1.2) mg/dL Estimated GFR (MDRD) 104 (>89) Glucose 92 (70-100) mg/dL POC Whole Bld Glucose 75 (70 - 100) mg/dL Calcium 8.3 L (8.5-10.3) mg/dL Phosphorus 3.2 (2.5-4.6) mg/dL Magnesium 1.9 (1.7-2.8) mg/dL Sepsis Event Note (H) - Evaluation Current Stage of Sepsis: Resolved Possible source of Sepsis: positive: GI tract/intra-abdominal - Sepsis Criteria Sepsis Criteria: Recorded Heart Rate greater than 90 bpm, Recorded Respiratory Rate greater than 20, WBC count greater than 12,000 or less than 4000, Hepatic: Bilirubin greater than 2mg/dl Assessment/Plan - Problem List (1) Perforation of intestine due to diverticulitis of gastrointestinal tract Impression: very comfortably this am. abdomen non distended wbc improved agree with care and plan follow up with surgery after his discharge is recommended
[2020-01-25] MEDS: ENOXAPARIN 40 MG/0.4 ML SYRINGE SUBQ SCH (11:01)
[2020-01-25] MEDS ORDERED: IOVERSOL 320 100 ML VIAL IVP ONE ×2 (15:30→18:16)
[2020-01-25] MEDS ORDERED: IOVERSOL 320 50 ML VIAL ONE (15:40)
--- NOTE | 2020-01-25 16:57 | CT Report ---
Reason: Diverticulitis. Worsening pain. Eval for abscess. Procedure Date: 01/25/2020 Accession Number: [id number] / [id number] Procedure: CT - Abdomen/Pelvis W CPT Code: Final Report FULL RESULT: EXAM: CT ABDOMEN AND PELVIS EXAM DATE: 01/25/2020 04:07 PM. CLINICAL HISTORY: Diverticulitis. Worsening pain. Eval for abscess. COMPARISONS: ABDOMEN/PELVIS W 01/23/2020 2:51 PM. TECHNIQUE: Routine helical CT imaging was performed through the abdomen and pelvis. IV contrast: OPTIRAY 320. Enteric contrast: No. Reconstructions: Coronal and sagittal. In accordance with CT protocol optimization, one or more of the following dose reduction techniques were utilized for this exam: automated exposure control, adjustment of mA and/or KV based on patient size, or use of iterative reconstructive technique. FINDINGS: Lung Bases: Mild right basilar atelectasis. Liver: Normal. No masses. Gallbladder/Bile Ducts: Unremarkable. Spleen: Postsplenectomy Pancreas: Normal. Adrenal Glands: Normal. Kidneys: Normal. No masses or hydronephrosis. Peritoneal Cavity/Bowel: Diverticulitis with perforation. Multiple larger foci of extraluminal air localized to the pelvis. Largest pocket measures 2.3 x 3.9 cm. Bowel wall thickening. Pericolonic edema and stranding. No focal abscess. There is adjacent small bowel with wall thickening. . There are small bowel loops measuring up to 3 cm with air-fluid levels. No retroperitoneal adenopathy. Normal appendix. Pelvic Organs: Mild bladder wall thickening. Vasculature: No aneurysms or other significant abnormality. Bones: Compressions of L1, L3 Other: None. IMPRESSION: 1. Diverticulitis with perforation. Multiple larger pockets of extraluminal foci of air which are localized to the pelvis. Largest pocket of air measures up to 2.3 x 3.9 cm. Bowel wall thickening, pericolonic fat stranding, fluid. No focal abscess. Adjacent small bowel wall thickening. 2. Mild ileus. 3. Mild bladder wall thickening. RADIA The call report notification system was initiated by Dr. Lauren Luciano at 04:47 PM on 01/25/2020. The above call report findings were discussed with Jorgito Clemente by Dr. Lauren Luciano at 04:53 PM on 01/25/2020.
[2020-01-25] MEDS: HYDROmorphone 2 MG/ML VIAL IVP PRN ×3 (17:39→22:53)
[2020-01-26] MEDS: SODIUM CHLORIDE FLUSH 0.9% 10 ML SYRINGE IVP SCH (00:11)
[2020-01-26] MEDS: PIPERACILLIN/TAZOBACTAM 3.375 GM in SODIUM CHLORIDE 0.9% MINIBAG 100 ML IV SCH ×2 (00:23→05:40)
[2020-01-26] MEDS: NICOTINE GUM 4 MG PO SCH ×5 (00:27→05:52)
[2020-01-26 00:29] VITALS: BP 140/91
[2020-01-26] MEDS: KETOROLAC 30 MG/ML VIAL IVP PRN ×2 (00:32→06:26)
[2020-01-26] MEDS: HYDROmorphone 2 MG/ML VIAL IVP PRN ×3 (01:01→05:48)
[2020-01-26] MEDS: diphenhydrAMINE 25 MG CAPSULE PO PRN (02:04)
[2020-01-26] MEDS: LACTATED RINGERS 1,000 ML IV SCH (02:06)
[2020-01-26 05:59] LABS: BASOPHILS # (AUTO) 0.1 10^3/uL (0.0-0.1); BASOPHILS % (AUTO) 0.9 %; EOSINOPHILS # (AUTO) 0.4 10^3/uL (0.0-0.7); EOSINOPHILS % (AUTO) 4.1 %; HGB - HEMOGLOBIN 14.3 g/dL (14.0-18.0); LYMPHOCYTES # (AUTO) 2.1 10^3/uL (1.5-3.5); MEAN CORPUSCULAR HEMOGLOBIN 33.2 pg (27.0-31.0); MEAN CORPUSCULAR HGB CONC 33.7 g/dL (32.0-36.0); MEAN CORPUSCULAR VOLUME 98.4 fL (80.0-94.0); MEAN PLATELET VOLUME 11.5 fL (7.4-11.4); MONOCYTES # (AUTO) 1.1 10^3/uL (0.0-1.0); MONOCYTES % (AUTO) 11.1 %; NEUTROPHILS # (AUTO) 5.9 10^3/uL (1.5-6.6); NEUTROPHILS % (AUTO) 61.5 %; PLT - PLATELET COUNT 212 10^3/uL (130-450); RED BLOOD COUNT 4.31 10^6/uL (4.70-6.10); RED CELL DISTRIBUTION WIDTH 12.3 % (12.0-15.0); WHITE BLOOD COUNT 9.5 x10^3/uL (4.8-10.8)
[2020-01-26 06:15] LABS: CALCIUM 8.5 mg/dL (8.5-10.3); CREATININE 0.7 mg/dL (0.6-1.2); MAGNESIUM 2.2 mg/dL (1.7-2.8); PHOSPHORUS 3.8 mg/dL (2.5-4.6)
[2020-01-26] MEDS ORDERED: D5.45NS W/20 MEQ KCL 1,000 ML IV SCH (09:00)
--- NOTE | 2020-01-26 13:56 | PROVIDER PROGRESS NOTE ---
Subjective - Prog Note Date Prog Note Date: 01/26/20 - Subjective Pt reports feeling: Improved (tolerating clears. passing gas. sharp pain yesterday. feeling better today) Objective - Vital Signs/Intake & Output Intake & Output: Intake & Output 01/23/20 01/24/20 01/25/20 01/26/20 23:59 23:59 23:59 23:59 Intake Total 3146.667 4209.167 3564.583 1200 Balance 3146.667 4209.167 3564.583 1200 - Objective General Appearance: positive: No acute distress, Alert Eyes Bilateral: positive: Normal inspection Respiratory: positive: No respiratory distress Abdomen: positive: No distention (localized left lower quadrant tenderness no guarding of rebound) - Lab Results Fish Bones: 01/26/20 05:43 01/26/20 05:43 Other Labs: Lab Results x24hrs 01/26/20 01/26/20 Range/Units 05:43 05:43 WBC 9.5 (4.8-10.8) x10^3/uL RBC 4.31 L (4.70-6.10) 10^6/uL Hgb 14.3 (14.0-18.0) g/dL Hct 42.4 (42.0-52.0) % MCV 98.4 H (80.0-94.0) fL MCH 33.2 H (27.0-31.0) pg MCHC 33.7 (32.0-36.0) g/dL RDW 12.3 (12.0-15.0) % Plt Count 212 (130-450) 10^3/uL MPV 11.5 H (7.4-11.4) fL Neut # (Auto) 5.9 (1.5-6.6) 10^3/uL Lymph # (Auto) 2.1 (1.5-3.5) 10^3/uL [place] # (Auto) 1.1 H (0.0-1.0) 10^3/uL Eos # (Auto) 0.4 (0.0-0.7) 10^3/uL Baso # (Auto) 0.1 (0.0-0.1) 10^3/uL Absolute Nucleated RBC 0.00 x10^3/uL Nucleated RBC % 0.0 /100WBC Sodium 141 (135-145) mmol/L Potassium 4.0 (3.5-5.0) mmol/L Chloride 107 (101-111) mmol/L Carbon Dioxide 23 (21-32) mmol/L Anion Gap 11.0 (6-13) BUN 6 (6-20) mg/dL Creatinine 0.7 (0.6-1.2) mg/dL Estimated GFR (MDRD) 121 (>89) Glucose 77 (70-100) mg/dL Calcium 8.5 (8.5-10.3) mg/dL Phosphorus 3.8 (2.5-4.6) mg/dL Magnesium 2.2 (1.7-2.8) mg/dL Sepsis Event Note (H) - Evaluation Current Stage of Sepsis: Resolved Possible source of Sepsis: positive: GI tract/intra-abdominal - Sepsis Criteria Sepsis Criteria: Recorded Heart Rate greater than 90 bpm, Recorded Respiratory Rate greater than 20, WBC count greater than 12,000 or less than 4000, Hepatic: Bilirubin greater than 2mg/dl Assessment/Plan - Problem List (1) Perforation of intestine due to diverticulitis of gastrointestinal tract Impression: more air, mostly localized adjacent to colon by ct scan yesterday. No abscess, free fluid, etc. Afebrile and wbc has returned to normal. Improving clinically. Agree with care and plan Continue clears until pain improved and then slow advancement of diet We discussed pain medication causes constipation and we need to be careful with this. We also discussed the possibility of colectomy with colostomy if he is not improving and if there is no abscess that could be drained. I am hopeful with continued care he will continue to improve in can go home in perhaps a day or two He is not pleased pain medication needs to be limited
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
== END 2020-01-26 08:25 | disposition left against medical advice (07) | DRG 872 ==
LOC: ED 12:15 → MS2 16:36
PROVIDERS: ADMIT Internal Medicine; ATTEND Nurse Practitioner Gerontology
DX: A41.9 Sepsis, unspecified organism (principal); K57.20 Diverticulitis of large intestine with perforation and abscess without bleeding; F17.210 Nicotine dependence, cigarettes, uncomplicated; Z90.81 Acquired absence of spleen; E87.6 Hypokalemia; Z53.29 Procedure and treatment not carried out because of patient's decision for other reasons
CPT/HCPCS: 36415; 74177; 80048; 80053; 81001; 83690; 83735; 84100; 85025; 96361; 96365; 96375; 96376; 99285; 99406; A9270; J1170; J7120; Q9967; 81003; 87086

== ENCOUNTER 2022-07-12 21:38 | Outpatient (CLI) | payer SELFPAY | END 2022-07-12 21:39 | disposition EMS.NT | LOC: EMS 21:38 | DX: S01.112A Laceration without foreign body of left eyelid and periocular area, initial encounter (principal); S01.81XA Laceration without foreign body of other part of head, initial encounter; Y04.2XXA Assault by strike against or bumped into by another person, initial encounter ==

== ENCOUNTER 2022-07-12 23:00 | Emergency (ER) | payer BC, OTHER ==
[2022-07-12 23:13] VITALS: BP 133/94
--- OUTSIDE RECORDS SUMMARY | 2022-07-12 23:40 | EXTERNAL MEDICAL SUMMARY RPT | Continuity of Care Document ---
:1975 Author Organization [facility] Address [address] [place] [address] Phone Allergies No information. Encounters No information. Functional Status No information. Immunizations No information. Medications No information. Problems No information. Procedures No information. Results/Labs test date author facility value unit interpret ation Result panel 1 (unknown) (no (unknown) (unknown) (no value) (units (unk nown) date) unknown) (unknown) (no (unknown) (unknown) 06/17/22 (units (unkno wn) date) unknown) (unknown) (no (unknown) (unknown) 06/17/22] (units (unkn own) date) unknown) (unknown) (no (unknown) (unknown) [id number] (units (unkno wn) date) unknown) (unknown) (no (unknown) (unknown) Age/Sex: 46 / M (units (unknown) date) Date of Service: unknown) (unknown) (no (unknown) (unknown) Allergies (units (unkn own) date) unknown) (unknown) (no (unknown) (unknown) [facility] (units (unknown) date) Medicine unknown) (unknown) (no (unknown) (unknown) [place], [place] (units ( unknown) date) [id number] unknown) (unknown) (no (unknown) (unknown) Anxiety (units (unkno wn) date) unknown) (unknown) (no (unknown) (unknown) Attending Dr: (units ( unknown) date) Jess Bernabe unknown) [employer] (unknown) (no (unknown) (unknown) Compression (units (un known) date) fracture unknown) (unknown) (no (unknown) (unknown) Confirmed (units (unkn own) date) 06/17/22] unknown) (unknown) (no (unknown) (unknown) : 1975 (units (unknown) date) Acct:[id number] unknown) (unknown) (no (unknown) (unknown) Dept at (units (unkno wn) date) . unknown) (unknown) (no (unknown) (unknown) Diverticulitis (units (unknown) date) unknown) (unknown) (no (unknown) (unknown) Documented By: (units (unknown) date) Jess Bernabe unknown) [facility] 06/17/22 1114 (unknown) (no (unknown) (unknown) Draft (units (unkno wn) date) unknown) (unknown) (no (unknown) (unknown) Family Practice (units (unknown) date) Office Visit unknown) (unknown) (no (unknown) (unknown) Hearing impaired (units (unknown) date) unknown) (unknown) (no (unknown) (unknown) History of ear (units (unknown) date) surgery unknown) (unknown) (no (unknown) (unknown) History of (units (unk nown) date) splenectomy unknown) (unknown) (no (unknown) (unknown) Hx of exploratory (units (unknown) date) laparotomy unknown) (01/26/20) (unknown) (no (unknown) (unknown) ITCHING (units (unkno wn) date) unknown) (unknown) (no (unknown) (unknown) Ileostomy in (units (u nknown) date) place unknown) (unknown) (no (unknown) (unknown) Intake Note: (units (u nknown) date) unknown) (unknown) (no (unknown) (unknown) Intake performed (units (unknown) date) by: Chong López unknown) (unknown) (no (unknown) (unknown) Intake (units (unkno wn) date) unknown) (unknown) (no (unknown) (unknown) Intake- Clincial (units (unknown) date) Staff unknown) (unknown) (no (unknown) (unknown) Left arm pain (units ( unknown) date) unknown) (unknown) (no (unknown) (unknown) Left hand (units (unkn own) date) fracture unknown) (unknown) (no (unknown) (unknown) Loc: [facility] (units (unkno wn) date) unknown) (unknown) (no (unknown) (unknown) Medical History (units (unknown) date) (Reviewed 03/18/22 unknown) @ 12:50 by Steph August PA-C) (unknown) (no (unknown) (unknown) Medications (units (un known) date) unknown) (unknown) (no (unknown) (unknown) PFSH (units (unkno wn) date) unknown) (unknown) (no (unknown) (unknown) PO BID #30 tabs (units (unknown) date) 04/27/20 [Rx unknown) Confirmed 06/17/22] (unknown) (no (unknown) (unknown) Patient: (units (unkno wn) date) Brandon Garcia P unknown) MR#: [id number] (unknown) (no (unknown) (unknown) Pt presents with (units (unknown) date) a right hand fifth unknown) digit possible fracture. Has been over 2 (unknown) (no (unknown) (unknown) Reason For Visit (units (unknown) date) unknown) (unknown) (no (unknown) (unknown) Signed By: (units (unk nown) date) unknown) (unknown) (no (unknown) (unknown) Smoking Status: (units (unknown) date) Current every day unknown) smoker (unknown) (no (unknown) (unknown) Social History (units (unknown) date) unknown) (unknown) (no (unknown) (unknown) Surgical History (units (unknown) date) (Reviewed 03/18/22 unknown) @ 12:50 by Steph August PA-C) (unknown) (no (unknown) (unknown) This note may (units ( unknown) date) have been all or unknown) partially generated using voice recognition (unknown) (no (unknown) (unknown) Tobacco + (units (unkn own) date) Substance Use unknown) (unknown) (no (unknown) (unknown) Tobacco Status (units (unknown) date) unknown) (unknown) (no (unknown) (unknown) Visit Reasons: (units (unknown) date) Right hand fifth unknown) digit concern for fracture (unknown) (no (unknown) (unknown) alcohol intake: (units (unknown) date) current unknown) (unknown) (no (unknown) (unknown) diphenhydramine (units (unknown) date) Adverse Reaction unknown) (Intermediate, Verified 06/17/22 11:15) (unknown) (no (unknown) (unknown) have occurred. If (units (unknown) date) there are any unknown) questions, please contact the Medical Records (unknown) (no (unknown) (unknown) household (units (unkn own) date) members: spouse unknown) and children (unknown) (no (unknown) (unknown) hydromorphone (units ( unknown) date) [From Dilaudid] unknown) Allergy (Mild, Verified 06/17/22 11:15) (unknown) (no (unknown) (unknown) ibuprofen 600 mg (units (unknown) date) tablet 800 mg PO unknown) BID ##0 07/06/06 [History Confirmed 06/17/22] (unknown) (no (unknown) (unknown) may occur. (units (unk nown) date) Occasional unknown) wrong-word or 'sound-alike' substitutions may have (unknown) (no (unknown) (unknown) occurred due to (units (unknown) date) the inherent unknown) limitations of voice recognition software. Please (unknown) (no (unknown) (unknown) omeprazole 20 mg (units (unknown) date) capsule,delayed unknown) release 20 mg PO DAILY 04/12/20 [History (unknown) (no (unknown) (unknown) oxycodone 10 mg (units (unknown) date) tablet,crush unknown) resistant,extended release 12 hr (OxyContin) 10 mg (unknown) (no (unknown) (unknown) oxycodone 5 mg (units (unknown) date) tablet 5 mg PO Q6H unknown) PRN pain #30 tabs 04/27/20 [Rx Confirmed (unknown) (no (unknown) (unknown) read the note (units ( unknown) date) carefully and unknown) recognize, using context, where these substitutions (unknown) (no (unknown) (unknown) software. (units (unkn own) date) Although every unknown) effort is made to edit content, room service server errors (unknown) (no (unknown) (unknown) weeks. Swelling (units (unknown) date) has gone down. Now unknown) states it doesnt feel ritght. Result panel 2 (unknown) (no (unknown) (unknown) (no value) (units (unk nown) date) unknown) (unknown) (no (unknown) (unknown) 06/17/22 (units (unkno wn) date) unknown) (unknown) (no (unknown) (unknown) 06/17/22] (units (unkn own) date) unknown) (unknown) (no (unknown) (unknown) 11:20 (units (unkno wn) date) unknown) (unknown) (no (unknown) (unknown) [id number] (units (unkno wn) date) unknown) (unknown) (no (unknown) (unknown) Age/Sex: 46 / M (units (unknown) date) Date of Service: unknown) (unknown) (no (unknown) (unknown) Allergies (units (unkn own) date) unknown) (unknown) (no (unknown) (unknown) [facility] (units (unknown) date) Medicine unknown) (unknown) (no (unknown) (unknown) [place], [place] (units ( unknown) date) [id number] unknown) (unknown) (no (unknown) (unknown) Anxiety (units (unkno wn) date) unknown) (unknown) (no (unknown) (unknown) Attending Dr: (units ( unknown) date) Jess Bernabe unknown) [employer] (unknown) (no (unknown) (unknown) BMI 20.9 (units (unkno wn) date) unknown) (unknown) (no (unknown) (unknown) BP 136/80 (units (unkn own) date) unknown) (unknown) (no (unknown) (unknown) Blood Pressure (units (unknown) date) Location Lt unknown) brachial (unknown) (no (unknown) (unknown) Compression (units (un known) date) fracture unknown) (unknown) (no (unknown) (unknown) Confirmed (units (unkn own) date) 06/17/22] unknown) (unknown) (no (unknown) (unknown) : 1975 (units (unknown) date) Acct:[id number] unknown) (unknown) (no (unknown) (unknown) Dept at (units (unkno wn) date) . unknown) (unknown) (no (unknown) (unknown) Diverticulitis (units (unknown) date) unknown) (unknown) (no (unknown) (unknown) Documented By: (units (unknown) date) Jess Bernabe unknown) [employer] 06/17/22 1114 (unknown) (no (unknown) (unknown) Draft (units (unkno wn) date) unknown) (unknown) (no (unknown) (unknown) Family Practice (units (unknown) date) Office Visit unknown) (unknown) (no (unknown) (unknown) Hearing impaired (units (unknown) date) unknown) (unknown) (no (unknown) (unknown) Height 6 ft (units (un known) date) unknown) (unknown) (no (unknown) (unknown) History of ear (units (unknown) date) surgery unknown) (unknown) (no (unknown) (unknown) History of (units (unk nown) date) splenectomy unknown) (unknown) (no (unknown) (unknown) Hx of exploratory (units (unknown) date) laparotomy unknown) (01/26/20) (unknown) (no (unknown) (unknown) ITCHING (units (unkno wn) date) unknown) (unknown) (no (unknown) (unknown) Ileostomy in (units (u nknown) date) place unknown) (unknown) (no (unknown) (unknown) Intake Note: (units (u nknown) date) unknown) (unknown) (no (unknown) (unknown) Intake performed (units (unknown) date) by: Chong López unknown) (unknown) (no (unknown) (unknown) Intake (units (unkno wn) date) unknown) (unknown) (no (unknown) (unknown) Intake- Clincial (units (unknown) date) Staff unknown) (unknown) (no (unknown) (unknown) Left arm pain (units ( unknown) date) unknown) (unknown) (no (unknown) (unknown) Left hand (units (unkn own) date) fracture unknown) (unknown) (no (unknown) (unknown) Loc: [facility] (units (unkno wn) date) unknown) (unknown) (no (unknown) (unknown) Medical History (units (unknown) date) (Reviewed 03/18/22 unknown) @ 12:50 by Steph August PA-C) (unknown) (no (unknown) (unknown) Medications (units (un known) date) unknown) (unknown) (no (unknown) (unknown) Oxygen Delivery (units (unknown) date) Method room air unknown) (unknown) (no (unknown) (unknown) PFSH (units (unkno wn) date) unknown) (unknown) (no (unknown) (unknown) PO BID #30 tabs (units (unknown) date) 04/27/20 [Rx unknown) Confirmed 06/17/22] (unknown) (no (unknown) (unknown) Patient: (units (unkno wn) date) Brandon Garcia P unknown) MR#: [id number] (unknown) (no (unknown) (unknown) Position Sitting (units (unknown) date) unknown) (unknown) (no (unknown) (unknown) Pt presents with (units (unknown) date) a right hand fifth unknown) digit possible fracture. Has been over 2 (unknown) (no (unknown) (unknown) Pulse 52 L (units (unk nown) date) unknown) (unknown) (no (unknown) (unknown) Pulse Oximetry (units (unknown) date) (%) 99 unknown) (unknown) (no (unknown) (unknown) Pulse Source (units (u nknown) date) Monitor unknown) (unknown) (no (unknown) (unknown) Reason For Visit (units (unknown) date) unknown) (unknown) (no (unknown) (unknown) Respiration 18 (units (unknown) date) unknown) (unknown) (no (unknown) (unknown) Signed By: (units (unk nown) date) unknown) (unknown) (no (unknown) (unknown) Smoking Status: (units (unknown) date) Current every day unknown) smoker (unknown) (no (unknown) (unknown) Social History (units (unknown) date) unknown) (unknown) (no (unknown) (unknown) Surgical History (units (unknown) date) (Reviewed 03/18/22 unknown) @ 12:50 by Steph August PA-C) (unknown) (no (unknown) (unknown) Temp 97 F L (units (un known) date) unknown) (unknown) (no (unknown) (unknown) Temp Source Skin (units (unknown) date) unknown) (unknown) (no (unknown) (unknown) This note may (units ( unknown) date) have been all or unknown) partially generated using voice recognition (unknown) (no (unknown) (unknown) Tobacco + (units (unkn own) date) Substance Use unknown) (unknown) (no (unknown) (unknown) Tobacco Status (units (unknown) date) unknown) (unknown) (no (unknown) (unknown) Visit Reasons: (units (unknown) date) Right hand fifth unknown) digit concern for fracture (unknown) (no (unknown) (unknown) Vitals (units (unkno wn) date) unknown) (unknown) (no (unknown) (unknown) Weight 154 lb 9 (units (unknown) date) oz unknown) (unknown) (no (unknown) (unknown) alcohol intake: (units (unknown) date) current unknown) (unknown) (no (unknown) (unknown) diphenhydramine (units (unknown) date) Adverse Reaction unknown) (Intermediate, Verified 06/17/22 11:15) (unknown) (no (unknown) (unknown) have occurred. If (units (unknown) date) there are any unknown) questions, please contact the Medical Records (unknown) (no (unknown) (unknown) household (units (unkn own) date) members: spouse unknown) and children (unknown) (no (unknown) (unknown) hydromorphone (units ( unknown) date) [From Dilaudid] unknown) Allergy (Mild, Verified 06/17/22 11:15) (unknown) (no (unknown) (unknown) ibuprofen 600 mg (units (unknown) date) tablet 800 mg PO unknown) BID ##0 07/06/06 [History Confirmed 06/17/22] (unknown) (no (unknown) (unknown) may occur. (units (unk nown) date) Occasional unknown) wrong-word or 'sound-alike' substitutions may have (unknown) (no (unknown) (unknown) occurred due to (units (unknown) date) the inherent unknown) limitations of voice recognition software. Please (unknown) (no (unknown) (unknown) omeprazole 20 mg (units (unknown) date) capsule,delayed unknown) release 20 mg PO DAILY 04/12/20 [History (unknown) (no (unknown) (unknown) oxycodone 10 mg (units (unknown) date) tablet,crush unknown) resistant,extended release 12 hr (OxyContin) 10 mg (unknown) (no (unknown) (unknown) oxycodone 5 mg (units (unknown) date) tablet 5 mg PO Q6H unknown) PRN pain #30 tabs 04/27/20 [Rx Confirmed (unknown) (no (unknown) (unknown) read the note (units ( unknown) date) carefully and unknown) recognize, using context, where these substitutions (unknown) (no (unknown) (unknown) software. (units (unkn own) date) Although every unknown) effort is made to edit content, room service server errors (unknown) (no (unknown) (unknown) weeks. Swelling (units (unknown) date) has gone down. Now unknown) states it doesnt feel right. Result panel 3 (unknown) (no (unknown) (unknown) (no value) (units (unk nown) date) unknown) (unknown) (no (unknown) (unknown) (1) Injury of (units ( unknown) date) right little unknown) finger: (unknown) (no (unknown) (unknown) 06/17/22 1130 (units ( unknown) date) unknown) (unknown) (no (unknown) (unknown) 06/17/22 (units (unkno wn) date) unknown) (unknown) (no (unknown) (unknown) 06/17/22] (units (unkn own) date) unknown) (unknown) (no (unknown) (unknown) 11:20 (units (unkno wn) date) unknown) (unknown) (no (unknown) (unknown) [id number] (units (unkno wn) date) unknown) (unknown) (no (unknown) (unknown) Age/Sex: 46 / M (units (unknown) date) Date of Service: unknown) (unknown) (no (unknown) (unknown) Allergies (units (unkn own) date) unknown) (unknown) (no (unknown) (unknown) [facility] (units (unknown) date) Medicine unknown) (unknown) (no (unknown) (unknown) [place], [place] (units ( unknown) date) [id number] unknown) (unknown) (no (unknown) (unknown) Anxiety (units (unkno wn) date) unknown) (unknown) (no (unknown) (unknown) Assessment + Plan (units (unknown) date) unknown) (unknown) (no (unknown) (unknown) Attending Dr: (units ( unknown) date) Jess Bernabe unknown) [employer] (unknown) (no (unknown) (unknown) BMI 20.9 (units (unkno wn) date) unknown) (unknown) (no (unknown) (unknown) BP 136/80 (units (unkn own) date) unknown) (unknown) (no (unknown) (unknown) Blood Pressure (units (unknown) date) Location Lt unknown) brachial (unknown) (no (unknown) (unknown) CMS distal. (units (un known) date) Patient is alert, unknown) oriented and comfortable. (unknown) (no (unknown) (unknown) Chief Complaint (units (unknown) date) unknown) (unknown) (no (unknown) (unknown) Chief Complaint: (units (unknown) date) Right 5th finger unknown) injury (unknown) (no (unknown) (unknown) Compression (units (un known) date) fracture unknown) (unknown) (no (unknown) (unknown) Confirmed (units (unkn own) date) 06/17/22] unknown) (unknown) (no (unknown) (unknown) Const (units (unkno wn) date) unknown) (unknown) (no (unknown) (unknown) : 1975 (units (unknown) date) Acct:[id number] unknown) (unknown) (no (unknown) (unknown) Dept at (units (unkno wn) date) . unknown) (unknown) (no (unknown) (unknown) Details: (units (unkno wn) date) unknown) (unknown) (no (unknown) (unknown) Diverticulitis (units (unknown) date) unknown) (unknown) (no (unknown) (unknown) Documented By: (units (unknown) date) Jess Bernabe unknown) [facility] 06/17/22 1114 (unknown) (no (unknown) (unknown) Effort + (units (unkno wn) date) Inspection: normal unknown) respiratory effort (unknown) (no (unknown) (unknown) Encounter type: (units (unknown) date) initial encounter unknown) Qualified Code(s): S69.91XA (unknown) (no (unknown) (unknown) Exam (units (unkno wn) date) unknown) (unknown) (no (unknown) (unknown) Extrem (units (unkno wn) date) unknown) (unknown) (no (unknown) (unknown) Face and sinus: (units (unknown) date) normal facial exam unknown) (unknown) (no (unknown) (unknown) Family Practice (units (unknown) date) Office Visit unknown) (unknown) (no (unknown) (unknown) General: (units (unkno wn) date) cooperative, unknown) comfortable and no acute distress (unknown) (no (unknown) (unknown) HENMT (units (unkno wn) date) unknown) (unknown) (no (unknown) (unknown) HPI and exam (units (u nknown) date) indicate right unknown) finger injury-occurred 2 and half weeks ago. Rest, (unknown) (no (unknown) (unknown) HPI (units (unkno wn) date) unknown) (unknown) (no (unknown) (unknown) He states 2 and (units (unknown) date) half weeks ago unknown) while working on his car, his ranch broke and he (unknown) (no (unknown) (unknown) Head: normal to (units (unknown) date) inspection unknown) (unknown) (no (unknown) (unknown) Hearing impaired (units (unknown) date) unknown) (unknown) (no (unknown) (unknown) Height 6 ft (units (un known) date) unknown) (unknown) (no (unknown) (unknown) History of ear (units (unknown) date) surgery unknown) (unknown) (no (unknown) (unknown) History of (units (unk nown) date) splenectomy unknown) (unknown) (no (unknown) (unknown) Hx of exploratory (units (unknown) date) laparotomy unknown) (01/26/20) (unknown) (no (unknown) (unknown) ITCHING (units (unkno wn) date) unknown) (unknown) (no (unknown) (unknown) Ileostomy in (units (u nknown) date) place unknown) (unknown) (no (unknown) (unknown) Intake Note: (units (u nknown) date) unknown) (unknown) (no (unknown) (unknown) Intake performed (units (unknown) date) by: Chong López unknown) (unknown) (no (unknown) (unknown) Intake (units (unkno wn) date) unknown) (unknown) (no (unknown) (unknown) Intake- Clincial (units (unknown) date) Staff unknown) (unknown) (no (unknown) (unknown) Left arm pain (units ( unknown) date) unknown) (unknown) (no (unknown) (unknown) Left hand (units (unkn own) date) fracture unknown) (unknown) (no (unknown) (unknown) Loc: [facility] (units (unkno wn) date) unknown) (unknown) (no (unknown) (unknown) Medical History (units (unknown) date) (Reviewed 03/18/22 unknown) @ 12:50 by Steph August PA-C) (unknown) (no (unknown) (unknown) Medications (units (un known) date) unknown) (unknown) (no (unknown) (unknown) Neck (units (unkno wn) date) unknown) (unknown) (no (unknown) (unknown) Neck: normal (units (u nknown) date) visual inspection unknown) and full ROM (unknown) (no (unknown) (unknown) Orders (units (unkno wn) date) unknown) (unknown) (no (unknown) (unknown) Orders: (units (unkno wn) date) unknown) (unknown) (no (unknown) (unknown) Other: (units (unkno wn) date) unknown) (unknown) (no (unknown) (unknown) Oxygen Delivery (units (unknown) date) Method room air unknown) (unknown) (no (unknown) (unknown) PFSH (units (unkno wn) date) unknown) (unknown) (no (unknown) (unknown) PO BID #30 tabs (units (unknown) date) 04/27/20 [Rx unknown) Confirmed 06/17/22] (unknown) (no (unknown) (unknown) Patient presents (units (unknown) date) to walk-in clinic unknown) with complaints of right 5th finger injury. (unknown) (no (unknown) (unknown) Patient: (units (unkno wn) date) Brandon Garcia P unknown) MR#: [id number] (unknown) (no (unknown) (unknown) Plan (units (unkno wn) date) unknown) (unknown) (no (unknown) (unknown) Position Sitting (units (unknown) date) unknown) (unknown) (no (unknown) (unknown) Pt presents with (units (unknown) date) a right hand fifth unknown) digit possible fracture. Has been over 2 (unknown) (no (unknown) (unknown) Pulse 52 L (units (unk nown) date) unknown) (unknown) (no (unknown) (unknown) Pulse Oximetry (units (unknown) date) (%) 99 unknown) (unknown) (no (unknown) (unknown) Pulse Source (units (u nknown) date) Monitor unknown) (unknown) (no (unknown) (unknown) Qualifiers: (units (un known) date) unknown) (unknown) (no (unknown) (unknown) Reason For Visit (units (unknown) date) unknown) (unknown) (no (unknown) (unknown) Resp (units (unkno wn) date) unknown) (unknown) (no (unknown) (unknown) Respiration 18 (units (unknown) date) unknown) (unknown) (no (unknown) (unknown) Right 5th distal (units (unknown) date) digit, swelling, unknown) tender to touch. Difficulty with extension (unknown) (no (unknown) (unknown) Signed By: (units (unk nown) date) <Electronically unknown) signed by Jess Bernabe> (unknown) (no (unknown) (unknown) Signed (units (unkno wn) date) unknown) (unknown) (no (unknown) (unknown) Smoking Status: (units (unknown) date) Current every day unknown) smoker (unknown) (no (unknown) (unknown) Social History (units (unknown) date) unknown) (unknown) (no (unknown) (unknown) Surgical History (units (unknown) date) (Reviewed 03/18/22 unknown) @ 12:50 by Steph August PA-C) (unknown) (no (unknown) (unknown) Temp 97 F L (units (un known) date) unknown) (unknown) (no (unknown) (unknown) Temp Source Skin (units (unknown) date) unknown) (unknown) (no (unknown) (unknown) This note may (units ( unknown) date) have been all or unknown) partially generated using voice recognition (unknown) (no (unknown) (unknown) Tobacco + (units (unkn own) date) Substance Use unknown) (unknown) (no (unknown) (unknown) Tobacco Status (units (unknown) date) unknown) (unknown) (no (unknown) (unknown) Unspecified (units (un known) date) injury of right unknown) wrist, hand and finger(s), initial encounter (unknown) (no (unknown) (unknown) Visit Reasons: (units (unknown) date) Right hand fifth unknown) digit concern for fracture (unknown) (no (unknown) (unknown) Vitals (units (unkno wn) date) unknown) (unknown) (no (unknown) (unknown) Weight 154 lb 9 (units (unknown) date) oz unknown) (unknown) (no (unknown) (unknown) XR finger RT min (units (unknown) date) 2V Today [id number] unknown) - Unspecified injury of unspecified wrist, (unknown) (no (unknown) (unknown) alcohol intake: (units (unknown) date) current unknown) (unknown) (no (unknown) (unknown) but has full (units (u nknown) date) range of motion. 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 He had initial pain and (unknown) (no (unknown) (unknown) hand and (units (unkno wn) date) finger(s), initial unknown) encounter (unknown) (no (unknown) (unknown) have occurred. If (units (unknown) date) there are any unknown) questions, please contact the Medical Records (unknown) (no (unknown) (unknown) household (units (unkn own) date) members: spouse unknown) and children (unknown) (no (unknown) (unknown) hydromorphone (units ( unknown) date) [From Dilaudid] unknown) Allergy (Mild, Verified 06/17/22 11:15) (unknown) (no (unknown) (unknown) ibuprofen 600 mg (units (unknown) date) tablet 800 mg PO unknown) BID ##0 07/06/06 [History Confirmed 06/17/22] (unknown) (no (unknown) (unknown) ice, elevate as (units (unknown) date) needed. Return to unknown) the emergency department if symptoms worsen, (unknown) (no (unknown) (unknown) icing, elevating (units (unknown) date) when possible.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
== END 2022-07-12 23:35 | disposition left against medical advice (07) ==
LOC: ED 23:00
DX: Z53.21 Procedure and treatment not carried out due to patient leaving prior to being seen by health care provider (principal)

== ENCOUNTER 2023-12-29 20:36 | Outpatient (CLI) | payer SELFPAY | END 2023-12-29 23:59 | disposition left against medical advice (07) | LOC: EMS 20:36 | DX: S05.92XA Unspecified injury of left eye and orbit, initial encounter (principal); X58.XXXA Exposure to other specified factors, initial encounter; F10.90 Alcohol use, unspecified, uncomplicated ==